=== PATIENT | female | born 1980 | race Hispanic/Latino ===

== ENCOUNTER 2017-09-27 13:41 | Emergency (ER) | payer OTHER ==
[2017-09-27 14:02] LABS: Absolute Lymphocytes (CBC) 3.5 K/uL (0.7-4.9); Absolute Monocytes 0.5 K/uL (0.1-1.3); Absolute Neutrophil 3.3 K/uL (1.8-8.0); Basophils % 0.7 % (0-1.3); Eosinophils % 5.7 % (0-4.4); Hematocrit 33.3 % (36.0-45.0); MCV 97.3 fL (80-100); MPV 7.1 fL (7.6-11.3); Monocytes % 6.3 % (3.3-12.3); RBC Red Blood Cell Count 3.42 M/uL (3.86-4.86)
[2017-09-27 14:10] LABS: BUN Blood Urea Nitrogen 15 mg/dL (6-20); Bicarbonate 27 mEq/L (21-31); Glomerular Filtration Rate > 90 mL/min (=/>90); Glucose Level 114 mg/dL (65-120); Potassium 3.7 mEq/L (3.6-5.0); Sodium Level 138 mEq/L (135-145)
[2017-09-27] MEDS ORDERED: NA CHLORIDE 0.9% 500 ML ONE (14:21)
--- NOTE | 2017-09-27 14:26 | RAD REPORT ---
EXAM DESCRIPTION: CT - Head Brain Wo Cont - 09/27/2017 2:02 pm CLINICAL HISTORY: Confusion COMPARISON: 2016 TECHNIQUE: Computed axial tomography of the head was obtained. IV contrast was not requested. All CT scans are performed using dose optimization technique as appropriate and may include automated exposure control or mA/KV adjustment according to patient size. FINDINGS: An intracranial bleed is not seen . The ventricles are normal in caliber. No extra-axial fluid collection is noted. Fluid within the sinuses/ mastoids is not seen. IMPRESSION: No acute intracranial abnormality is seen. If patient's symptoms persist MRI of the bra in would be recommended.
[2017-09-27 14:40] LABS: Urine Blood TRACE (NEG); Urine Glucose NEGATIVE (NEG); Urine Protein NEGATIVE (NEG)
[2017-09-27 14:53] LABS: Urine Bacteria >50 /HPF (<20); Urine Culture Reflex Order REFLEXED; Urine RBC <5 /HPF (NONE SEEN)
--- NOTE | 2017-09-27 15:03 | ER ---
Nurse's Notes [facility] Name: Sima Mcgee Age: 37 yrs Sex: Female : 1980 Arrival Date: 09/27/2017 Time: 13:39 Bed 2 Private MD: Diagnosis: Altered mental status, unspecified Presentation: 09/27 13:36 Presenting complaint: EMS states: Pt was at the dentist office getting dental work done sv and received lidocaine. Pt started becoming altered and admitted to smoking marijuana today. BS-107 HR-96 BP 124/78 Temp-97.6. Transition of care: patient was received from another setting of care (ambulatory specialty care practice), Dentist office. Onset of symptoms was September 27, 2017. Care prior to arrival: IV initiated. 20 GA, in the right antecubital area, Glucose check: 107. 13:36 Method Of Arrival: EMS: [facility] sv 13:36 Acuity: ERMIAS 3 sv Triage Assessment: 13:40 General: Appears in no apparent distress. comfortable, slender, well developed, sv Behavior is calm, cooperative, appropriate for age, drowsy. Pain: Denies pain. EENT: No signs and/or symptoms were reported regarding the EENT system. Neuro: Level of Consciousness is obeys commands, lethargic, Pt able to be woken up with verbal stimuli.. Oriented to person, place, time, Moves all extremities. Speech is normal. Cardiovascular: Patient's skin is warm and dry. Respiratory: Respiratory effort is even, unlabored, Respiratory pattern is regular, symmetrical. Derm: Skin is pink, warm \\T\\ dry. Musculoskeletal: Range of motion: intact in all extremities. Historical: - Allergies: 13:50 NKA; sv - Home Meds: 13:50 None [Active]; sv - PMHx: 13:50 Multiple Sclerosis; sv - PSHx: 13:50 None; sv - Immunization history:: Adult Immunizations up to date. - Social history:: Patient uses street drugs, marijuana. - Family history:: not pertinent. - Hospitalizations: : No recent hospitalization is reported. Screenin:51 Abuse screen: Denies threats or abuse. Denies injuries from another. Nutritional sv screening: No deficits noted. Tuberculosis screening: No symptoms or risk factors identified. Fall Risk None identified. Assessment: 13:53 Reassessment: See triage assessment. sv 14:42 Reassessment: Patient appears in no apparent distress at this time. No changes from sv previously documented assessment. Patient and/or family updated on plan of care and expected duration. Pain level reassessed. Patient is alert, oriented x 3, equal unlabored respirations, skin warm/dry/pink. Spouse at the bedside. 14:55 Reassessment: Patient appears in no apparent distress at this time. Patient and/or sv family updated on plan of care and expected duration. Pain level reassessed. Patient is alert, oriented x 3, equal unlabored respirations, skin warm/dry/pink. Pt stated "I need to leave honey. I can't go all weekend with no tooth and no phone. And my is special and won't go get my stuff." Informed Dr Rivas, pt must sign out AMA. Vital Signs: 13:49 BP 107 / 76; Pulse 88; Resp 16; Temp 97.8; Pulse Ox 100% ; Pain 0/10; sv 14:44 BP 132 / 88; Pulse 83; Resp 16; Pulse Ox 100% on R/A; sv ED Course: 13:39 Patient arrived in ED. sv 13:41 Anish Rivas MD is Attending Physician. rn 13:46 Donna Johnston RN is Primary Nurse. sv 13:49 Triage completed. sv 13:50 Arm band placed on left wrist. sv 13:51 Patient has correct armband on for positive identification. Bed in low position. Call sv light in reach. Side rails up X2. Pulse ox on. NIBP on. Door closed. Warm blanket given. Head of bed elevated. 13:[address] via stretcher. sv 14:35 Urine collected: clean catch specimen, cloudy. dh3 14:40 Urine --Ancillary (enter results) Sent. sv 14:40 Urine Dipstick--Ancillary (enter results) Sent. sv 14:41 Basic Metabolic Panel Sent. sv 14:41 CBC with Diff Sent. sv 14:41 CT Head Brain wo Cont Sent. sv 14:41 Urine Drug Screen Sent. sv 14:41 Urine Microscopic Only Sent. sv 15:04 No provider procedures requiring assistance completed. IV discontinued, intact, sv bleeding controlled, No redness/swelling at site. Pressure dressing applied. Administered Medications: 14:10 Drug: NS 0.9% 500 ml Route: IV; Rate: bolus; Site: right antecubital; sv 15:00 Follow up: Response: No adverse reaction; IV Status: Completed infusion; IV Intake: sv 500ml 14:55 Drug: Macrobid 100 mg Route: PO; sv 15:03 Follow up: Response: No adverse reaction; Medication administered at discharge. sv Point of Care Testing: Blood Glucose: 13:51 Blood Glucose: 108 mg/dL; sv Ranges: Outcome: 15:04 AMA AMA form signed sv 15:04 Condition: stable 15:04 Instructed on AMA 15:05 Patient left the ED. sv Addendum: 09/30/2017 09:18 Addendum: Culture Results: Positive urine culture. Bacteria is resistant to, has i w intermediate sensitivity, or is not tested against prescribed antibiotics. Report given to IGOR for further evaluation and then to car changer for follow up with patient. Phone call Attempt #1 pt did not answer, unable to leave voice mail. Signatures: Donna Johnston RN RN sv Williams, Irene, RN RN iw Nieto, Roman, MD MD rn Herrera, Deanna [facility]
--- NOTE | 2017-09-27 15:03 | EDPHYS ---
Physician Documentation [facility] Name: Sima Mcgee Age: 37 yrs Sex: Female : 1980 Arrival Date: 09/27/2017 Time: 13:39 Bed 2 Private MD: ED Physician Anish Rivas HPI: 09/27 14:45 This 37 yrs old Female presents to ER via EMS with complaints of Altered rn Mental Status. 14:45 The patient presents with confusion. Onset: The symptoms/episode began/occurred just rn prior to arrival. Possible causes: unknown. Current symptoms: In the emergency department the patient's symptoms have improved. The patient has experienced similar episodes in the past. Pt at dentist office, got some lidocaine and was getting a local procedure done, no other meds given, office report that she began to "act funny" toward end of procedure, admits to using normal marijuana prior to office visit to calm her nerves, also reports has MS, doesn't take medication and sometimes has this problem of generalized weakness and acting confused. . Historical: - Allergies: 13:50 NKA; sv - Home Meds: 13:50 None [Active]; sv - PMHx: 13:50 Multiple Sclerosis; sv - PSHx: 13:50 None; sv - Immunization history:: Adult Immunizations up to date. - Social history:: Patient uses street drugs, marijuana. - Family history:: not pertinent. - Hospitalizations: : No recent hospitalization is reported. ROS: 14:45 Constitutional: Negative for fever, chills, and weight loss, Eyes: Negative for injury, rn pain, redness, and discharge, Neck: Negative for injury, pain, and swelling, Cardiovascular: Negative for chest pain, palpitations, and edema, Respiratory: Negative for shortness of breath, cough, wheezing, and pleuritic chest pain, Abdomen/GI: Negative for abdominal pain, nausea, vomiting, diarrhea, and constipation, Back: Negative for injury and pain, MS/Extremity: Negative for injury and deformity, Skin: Negative for injury, rash, and discoloration, Neuro: Negative for headache, seizure. Exam: 14:45 Constitutional: This is a well developed, well nourished patient who is awake, alert, rn and in no acute distress. Head/Face: Normocephalic, atraumatic. Eyes: Pupils equal round and reactive to light, extra-ocular motions intact. Lids and lashes normal. Conjunctiva and sclera are non-icteric and not injected. Cornea within normal limits. Periorbital areas with no swelling, redness, or edema. Neck: Trachea midline, no thyromegaly or masses palpated, and no cervical lymphadenopathy. Supple, full range of motion without nuchal rigidity, or vertebral point tenderness. No Meningismus. Cardiovascular: Regular rate and rhythm with a normal S1 and S2. No gallops, murmurs, or rubs. Normal PMI, no JVD. No pulse deficits. Respiratory: Lungs have equal breath sounds bilaterally, clear to auscultation and percussion. No rales, rhonchi or wheezes noted. No increased work of breathing, no retractions or nasal flaring. Abdomen/GI: Soft, non-tender, with normal bowel sounds. No distension or tympany. No guarding or rebound. No evidence of tenderness throughout. MS/ Extremity: Pulses equal, no cyanosis. Neurovascular intact. Full, normal range of motion. Equal circumference. Neuro: Awake and alert, GCS 15, oriented to person, place, time, and situation. Cranial nerves II-XII grossly intact. Motor strength 5/5 in all extremities. Sensory grossly intact Vital Signs: 13:49 BP 107 / 76; Pulse 88; Resp 16; Temp 97.8; Pulse Ox 100% ; Pain 0/10; sv 14:44 BP 132 / 88; Pulse 83; Resp 16; Pulse Ox 100% on R/A; sv MDM: 13:41 Patient medically screened. rn 15:00 Differential Diagnosis: electrolyte abnormality, overdose, volume depletion, MS flare, rn UTI, dehydration. Data reviewed: vital signs, nurses notes, and as a result, I will. ED course: Pt states impatient, feels fine, is back to baseline and more lucid, normal exam, states dentist is closing, has purse and belongings there, wants to leave and doesn't want to wait of labs.. 09/27 13:49 Order name: CBC with Diff rn 09/27 13:49 Order name: Basic Metabolic Panel rn 09/27 13:49 Order name: Urine Drug Screen rn 09/27 13:49 Order name: Urine Microscopic Only rn 09/27 14:10 Order name: Basic Metabolic Panel; Complete Time: 14:32 EDMS 09/27 14:33 Order name: CBC with Automated Diff; Complete Time: 14:58 EDMS 09/27 13:46 Order name: CT Head Brain wo Cont rn 09/27 14:27 Order name: CT; Complete Time: 14:32 EDMS 09/27 14:35 Order name: Urine Dipstick--Ancillary (enter results) 09/27 14:35 Order name: Urine --Ancillary (enter results) bd 09/27 14:40 Order name: Urine --Ancillary; Complete Time: 14:58 EDMS 09/27 14:40 Order name: Urine Dipstick-Ancillary; Complete Time: 14:58 EDMS 09/27 14:54 Order name: Urine Microscopic Only; Complete Time: 14:58 EDHI 09/27 13:49 Order name: IV Start; Complete Time: 14:00 rn 09/27 13:49 Order name: Urine Test (obtain specimen); Complete Time: 14:35 rn 09/27 13:49 Order name: Urine Dipstick-Ancillary (obtain specimen); Complete Time: 14:35 rn 09/27 13:49 Order name: EKG - Nurse/Tech; Complete Time: 13:59 rn 09/27 13:49 Order name: EKG; Complete Time: 13:50 rn 09/27 13:49 Order name: Glucose Level; Complete Time: 13:59 rn Administered Medications: 14:10 Drug: NS 0.9% 500 ml Route: IV; Rate: bolus; Site: right antecubital; sv 15:00 Follow up: Response: No adverse reaction; IV Status: Completed infusion; IV Intake: sv 500ml 14:55 Drug: Macrobid 100 mg Route: PO; sv 15:03 Follow up: Response: No adverse reaction; Medication administered at discharge. sv Point of Care Testing: Blood Glucose: 13:51 Blood Glucose: 108 mg/dL; sv Ranges: Critical Glucose Levels:Adult <50 mg/dl or >400 mg/dl <40 mg/dl or >180 mg/dl Disposition: 09/27/17 15:03 Patient has left against medical advice. Impression: Altered mental status, unspecified. - Patients states they are going to Home. - Condition is Stable. - Discharge Instructions: Urinary Tract Infection. - Prescriptions for Macrobid 100 mg Oral Capsule - take 1 capsule by ORAL route every 12 hours for 10 days; 20 capsule. Follow up: Private Physician; When: As needed; Reason: Recheck today's complaints, Re-evaluation by your physician. - Problem is new. - Symptoms have improved. Signatures: Dispatcher [employer] Donna Kwok, GREGORIO RN Anish Casiano MD MD rn
[2017-09-27] MEDS ORDERED: NITROFURAN MACRO 100 MG CAP PO ONE (15:11)
[2017-09-27 15:52] LABS: Barbiturates NEGATIVE; Benzodiazepines NEGATIVE; Cocaine NEGATIVE; METHAMPHETAM NEGATIVE; Opiates POSITIVE; Phencyclidine NEGATIVE; THC Cannibis POSITIVE
--- NOTE | 2017-09-28 07:23 | EKG ---
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
== END 2017-09-27 15:05 | disposition left against medical advice (07) ==
LOC: ER 13:41
DX: R41.82 Altered mental status, unspecified (principal); G35 Multiple sclerosis
CPT/HCPCS: 36415; 70450; 80048; 80307; 81003; 81015; 81025; 82962; 85025; 87077; 87086; 87088; 87186; 93005; 96360; 99284

== ENCOUNTER 2017-12-08 11:53 | Emergency (ER) | payer OTHER ==
[2017-12-08] MEDS ORDERED: NA CHLORIDE 0.9% 1,000 ML ONE (12:55)
[2017-12-08] MEDS ORDERED: METHYLPREDNISOLONE 125 MG INJ ONE (12:55)
[2017-12-08 13:02] LABS: Absolute Lymphocytes (CBC) 3.3 K/uL (0.7-4.9); Absolute Monocytes 0.5 K/uL (0.1-1.3); Absolute Neutrophil 2.5 K/uL (1.8-8.0); Basophils % 0.8 % (0-1.3); Eosinophils % 8.3 % (0-4.4); Hematocrit 30.1 % (36.0-45.0); Lymphocytes % 47.8 % (15.3-44.8); MCH 32.5 pg (27.0-35.0); Monocytes % 6.8 % (3.3-12.3); RBC Red Blood Cell Count 3.04 M/uL (3.86-4.86)
[2017-12-08 13:13] LABS: Bicarbonate 27 mEq/L (21-31); Glucose Level 99 mg/dL (65-120); Lipase 21 U/L (22-51); Sodium Level 137 mEq/L (135-145)
[2017-12-08 13:19] LABS: ALT/SGPT 10 IU/L (10-60); AST/SGOT 15 IU/L (10-42); Albumin 3.6 g/dL (3.2-5.5); Alkaline Phosphatase 36 IU/L (42-121); BUN Blood Urea Nitrogen 13 mg/dL (6-20); Bilirubin Direct 0.1 mg/dL (0-0.2); Bilirubin Total 0.3 mg/dL (0.3-1.2); Protein, Total 6.3 g/dL (6.0-8.3)
[2017-12-08 13:54] LABS: Urine Blood NEGATIVE (NEG); Urine Glucose NEGATIVE (NEG); Urine Protein NEGATIVE (NEG); Urine pH 5.5 (5.0-7.0)
[2017-12-08 13:56] LABS: Urine Bacteria >50 /HPF (<20); Urine Culture Reflex Order NOT NEEDED; Urine Mucus 1+ /HPF (NONE SEEN); Urine RBC <5 /HPF (NONE SEEN)
[2017-12-08 14:01] LABS: Barbiturates NEGATIVE; Benzodiazepines NEGATIVE; Cocaine NEGATIVE; METHAMPHETAM NEGATIVE (NEGATIVE); Opiates POSITIVE; Phencyclidine NEGATIVE; THC Cannibis POSITIVE
[2017-12-08] MEDS ORDERED: CEFTRIAXONE/SWI 1gm 1 GM/10 ML SYR ONE (14:51)
--- NOTE | 2017-12-08 15:09 | EDPHYS ---
Physician Documentation [facility] Name: Sima Mcgee Age: 37 yrs Sex: Female : 1980 Arrival Date: 12/08/2017 Time: 11:57 Bed 6 Private MD: ED Physician Stan Garcia HPI: 12/08 13:51 This 37 yrs old Female presents to ER via EMS with complaints of generalized snw pain, MS flair up. 13:51 Pt found unresponsive in vehicle post taking 2 Gregory and smoking marijuana for MS pain. snw Onset: The symptoms/episode began/occurred suddenly, just prior to arrival. Severity of symptoms: At their worst the symptoms were moderate. It is unknown whether or not the patient has had similar symptoms in the past. It is unknown whether or not the patient has recently seen a physician. When I assessed pt she was drowsy but arousable, answers questions appropriately. Historical: - Allergies: 12:16 NKA; ss - Home Meds: 12:16 Gregory 10-325 mg Oral tab [Active]; "unknown MS medication" [Active]; ss - PMHx: 12:16 Multiple Sclerosis; ss - PSHx: 12:43 tummy tuck; ss - Immunization history:: Adult Immunizations unknown. - Social history:: Smoking status: unknown. - Ebola Screening: : Patient denies exposure to infectious person Patient denies travel to an Ebola-affected area in the 21 days before illness onset. ROS: 14:58 Eyes: Negative for injury, pain, redness, and discharge, ENT: Negative for injury, snw pain, and discharge, Neck: Negative for injury, pain, and swelling, Cardiovascular: Negative for chest pain, palpitations, and edema, Respiratory: Negative for shortness of breath, cough, wheezing, and pleuritic chest pain, Abdomen/GI: Negative for abdominal pain, nausea, vomiting, diarrhea, and constipation, Back: Negative for injury and pain, : Negative for injury, bleeding, discharge, and swelling, MS/Extremity: Negative for injury and deformity, Skin: Negative for injury, rash, and discoloration. 14:58 Constitutional: Positive for body aches, malaise, poor PO intake. 14:58 Neuro: Positive for near syncope, weakness, pain all over. Exam: 14:55 Head/Face: Normocephalic, atraumatic. Eyes: Pupils equal round and reactive to light, snw extra-ocular motions intact. Lids and lashes normal. Conjunctiva and sclera are non-icteric and not injected. Cornea within normal limits. Periorbital areas with no swelling, redness, or edema. ENT: Nares patent. No nasal discharge, no septal abnormalities noted. Tympanic membranes are normal and external auditory canals are clear. Oropharynx with no redness, swelling, or masses, exudates, or evidence of obstruction, uvula midline. Mucous membranes moist. Neck: Trachea midline, no thyromegaly or masses palpated, and no cervical lymphadenopathy. Supple, full range of motion without nuchal rigidity, or vertebral point tenderness. No Meningismus. Chest/axilla: Normal chest wall appearance and motion. Nontender with no deformity. No lesions are appreciated. Cardiovascular: Regular rate and rhythm with a normal S1 and S2. No gallops, murmurs, or rubs. Normal PMI, no JVD. No pulse deficits. Respiratory: Lungs have equal breath sounds bilaterally, clear to auscultation and percussion. No rales, rhonchi or wheezes noted. No increased work of breathing, no retractions or nasal flaring. Abdomen/GI: Soft, non-tender, with normal bowel sounds. No distension or tympany. No guarding or rebound. No evidence of tenderness throughout. Back: No spinal tenderness. No costovertebral tenderness. Full range of motion. Skin: Warm, dry with normal turgor. Normal color with no rashes, no lesions, and no evidence of cellulitis. MS/ Extremity: Pulses equal, no cyanosis. Neurovascular intact. Full, normal range of motion. Neuro: Awake and alert, GCS 15, oriented to person, place, time, and situation. Cranial nerves II-XII grossly intact. Motor strength 5/5 in all extremities. Sensory grossly intact. Cerebellar exam normal. Normal gait. 14:55 Constitutional: The patient appears awake, anxious, drowsy but Oriented x 3 14:55 Psych: Behavior/mood is anxious, Affect is calm, Oriented to person, place, time, Recent memory is impaired. Vital Signs: 12:00 BP 95 / 74; Pulse 93; Resp 14; Temp 99.0(O); Pulse Ox 100% on R/A; Weight 45.36 kg; ss Height 5 ft. 0 in. (152.40 cm); Pain 0/10; 13:00 BP 100 / 69; Pulse 70; Resp 14; Pulse Ox 100% on R/A; dh3 14:00 BP 109 / 69; Pulse 83; Resp 15; Pulse Ox 100% on R/A; dh3 15:29 BP 107 / 71; Pulse 81; Resp 18; Temp 98.4(TE); Pulse Ox 99% on R/A; ph 12:00 Body Mass Index 19.53 (45.36 kg, 152.40 cm) ss MDM: 12:22 Patient medically screened. snw 14:58 Data reviewed: vital signs, nurses notes. Data interpreted: Pulse oximetry: on room air snw is 100 %. Interpretation: normal. Counseling: I had a detailed discussion with the patient and/or guardian regarding: the historical points, exam findings, and any diagnostic results supporting the discharge/admit diagnosis, lab results, the need for outpatient follow up, for definitive care, to return to the emergency department if symptoms worsen or persist or if there are any questions or concerns that arise at home. Special discussion: Based on the history and exam findings, there is no indication for further emergent testing or inpatient evaluation. I discussed with the patient/guardian the need to see the primary care provider for further evaluation of the symptoms. 15:02 ED course: on arrival BP a little low, will give fluids and steroids. w 12/08 12:22 Order name: Basic Metabolic Panel; Complete Time: 13:27 snw 12/08 12:22 Order name: CBC with Diff; Complete Time: 13:17 snw 12/08 12:22 Order name: Hepatic Function; Complete Time: 13:27 snw 12/08 12:22 Order name: Lipase; Complete Time: 13:27 snw 12/08 12:22 Order name: Urine Microscopic Only; Complete Time: 14:02 snw 12/08 12:22 Order name: Tylenol Level; Complete Time: 13:27 snw 12/08 12:22 Order name: Urine Test (obtain specimen); Complete Time: 13:47 snw 12/08 12:22 Order name: UDS; Complete Time: 14:05 snw 12/08 13:47 Order name: Urine Culture snw 06/03 13:51 Order name: Urine Dipstick--Ancillary (enter results); Complete Time: 13:55 em1 12/08 13:51 Order name: Urine --Ancillary (enter results); Complete Time: 13:55 em1 12/08 12:22 Order name: IV Saline Lock; Complete Time: 12:56 snw 12/08 12:22 Order name: Labs collected and sent; Complete Time: 12:56 snw 12/08 12:22 Order name: Urine Dipstick-Ancillary (obtain specimen); Complete Time: 13:47 snw Administered Medications: 13:00 Drug: NS 0.9% 1000 ml Route: IV; Rate: 1 bolus; Site: right antecubital; hb 15:27 Follow up: Response: No adverse reaction; IV Status: Completed infusion ph 13:00 Drug: SOLU-Medrol 125 mg Route: IVP; Site: right antecubital; hb 15:27 Follow up: Response: No adverse reaction ph 15:04 Drug: Rocephin 1 grams Route: IV; Rate: calculated rate; Site: right antecubital; ph 15:27 Follow up: Response: No adverse reaction; IV Status: Completed infusion ph Disposition: 12/08/17 15:08 Discharged to Home. Impression: Urinary tract infection, site not specified, Unintentional overdose of pain medications. - Condition is Stable. - Discharge Instructions: Muscle Pain, Adult, Overdose, Accidental, Urinary Tract Infection. - Prescriptions for Augmentin 875- 125 mg Oral Tablet - take 1 tablet by ORAL route every 12 hours for 10 days; 20 tablet. Medrol (Levon) 4 mg Oral Tablets, Dose Pack - take 1 tablet by ORAL route as directed - follow package instructions; 1 packet. - Medication Reconciliation Form, Thank You Letter, Antibiotic Education, Prescription Opioid Use form. - Follow up: Private Physician; When: Tomorrow; Reason: Recheck today's complaints, Continuance of care, Re-evaluation by your physician. Follow up: Emergency Department; When: As needed; Reason: Worsening of condition. Addendum: 12/12/2017 11:34 Co-signature as Attending Physician, Stan Garcia MD. g s Signatures: Dispatcher [facility] EDMiley Reynoso, [employer] SUPERVISOR-[employer]aw Meredith Herrera RN RN ss Juanita Mccoy RN RN ph Millie Gimenez RN RN Stan Garcia MD MD gs Corrections: (The following items were deleted from the chart) 12/08 12:43 12:16 PSHx: None; ss ss 15:29 15:08 12/08/2017 15:08 Discharged to Home. Impression: Urinary tract infection, site ph not specified; Unintentional overdose of pain medications. Condition is Stable. Forms are Medication Reconciliation Form, Thank You Letter, Antibiotic Education, Prescription Opioid Use. Follow up: Private Physician; When: Tomorrow; Reason: Recheck today's complaints, Continuance of care, Re-evaluation by your physician. Follow up: Emergency Department; When: As needed; Reason: Worsening of condition. snw
--- NOTE | 2017-12-08 15:09 | ER ---
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 Pt ss is awake, but drowsy on arrival to ER. Pt reports she smoked marijuana and took two 10 mg Hal[place]orpe that she takes for MS. Pt states, "The MS makes me drowsy." Denies suicidal ideations. Pt states, "I'm trying to live!". Transition of care: patient was not received from another setting of care. Onset of symptoms was December 08, 2017. Risk Assessment: Do you want to hurt yourself or someone else? Patient reports no desire to harm self or others. Initial Sepsis Screen: Does the patient meet any 2 criteria? No. Patient's initial sepsis screen is negative. Does the patient have a suspected source of infection? No. Patient's initial sepsis screen is negative. Care prior to arrival: None. 12:02 Method Of Arrival: EMS: [facility] ss 12:02 Acuity: ERMIAS 3 ss Historical: - Allergies: 12:16 NKA; ss - Home Meds: 12:16 Halethorpe 10-325 mg Oral tab [Active]; "unknown MS medication" [Active]; ss - PMHx: 12:16 Multiple Sclerosis; ss - PSHx: 12:43 tummy tuck; ss - Immunization history:: Adult Immunizations unknown. - Social history:: Smoking status: unknown. - Ebola Screening: : Patient denies exposure to infectious person Patient denies travel to an Ebola-affected area in the 21 days before illness onset. Screenin:41 Abuse screen: Denies threats or abuse. Denies injuries from another. Nutritional ss screening: No deficits noted. Tuberculosis screening: Never had TB. Fall Risk No fall in past 12 months (0 pts). Secondary diagnosis (15 points) impaired/ drowsy. IV access (20 points). Ambulatory Aid- None/Bed Rest/Nurse Assist (0 pts). Gait- Normal/Bed Rest/Wheelchair (0 pts) Mental Status- Oriented to own ability (0 pts). Assessment: 12:15 General: Appears in no apparent distress. comfortable, slender, Behavior is calm, ph cooperative, drowsy, Denies fever, feeling ill. Pain: Complains of pain in " all over" reports hx of MS. 12:15 Neuro: Level of Consciousness is awake, obeys commands, Oriented to person, place, ph time, situation, Speech is normal. Cardiovascular: Capillary refill < 3 seconds Patient's skin is warm and dry. Respiratory: Airway is patent Respiratory effort is even, unlabored, Respiratory pattern is regular, symmetrical. GI: No signs and/or symptoms were reported involving the gastrointestinal system. Patient currently denies diarrhea, nausea, vomiting. : No signs and/or symptoms were reported regarding the genitourinary system. Derm: Skin is intact, is healthy with good turgor, Skin is pink, warm \\T\\ dry. Musculoskeletal: Circulation, motion, and sensation intact. Range of motion: intact in all extremities. 12:40 Reassessment: attempted to call patient's , Pancho # [phone] as requested ss by patient. No answer. 13:45 Reassessment: Patient appears in no apparent distress at this time. No changes from hb previously documented assessment. Patient and/or family updated on plan of care and expected duration. Pain level reassessed. 15:12 Reassessment: Patient appears in no apparent distress at this time. Patient and/or ph family updated on plan of care and expected duration. Pain level reassessed. Patient is alert, oriented x 3, equal unlabored respirations, skin warm/dry/pink. Pt appears more alert, responding appropriately, awaiting discharge, spouse at bedside. Vital Signs: 12:00 BP 95 / 74; Pulse 93; Resp 14; Temp 99.0(O); Pulse Ox 100% on R/A; Weight 45.36 kg; ss Height 5 ft. 0 in. (152.40 cm); Pain 0/10; 13:00 BP 100 / 69; Pulse 70; Resp 14; Pulse Ox 100% on R/A; dh3 14:00 BP 109 / 69; Pulse 83; Resp 15; Pulse Ox 100% on R/A; dh3 15:29 BP 107 / 71; Pulse 81; Resp 18; Temp 98.4(TE); Pulse Ox 99% on R/A; ph 12:00 Body Mass Index 19.53 (45.36 kg, 152.40 cm) ED Course: 11:57 Patient arrived in ED. em1 12:00 Arm band placed on right wrist. ss 12:09 Triage completed. ss 12:20 Miley Recio FNP-C is PHCP. snw 12:20 Stan Garcia MD is Attending Physician. snw 12:41 Patient has correct armband on for positive identification. Bed in low position. Call light in reach. 12:50 Maintain EMS IV. Dressing intact. Good blood return noted. Site clean \\T\\ dry. Gauge \\T\\ ph site: 20 RAC. 12:55 Initial lab(s) drawn, by me, sent to lab. dh3 13:47 Urine collected: clean catch specimen, cloudy. dh3 14:56 Juanita Mccoy, RN is Primary Nurse. ph 15:12 No provider procedures requiring assistance completed. ph 15:28 IV discontinued, intact, bleeding controlled, No redness/swelling at site. Pressure ph dressing applied. Administered Medications: 13:00 Drug: NS 0.9% 1000 ml Route: IV; Rate: 1 bolus; Site: right antecubital; hb 15:27 Follow up: Response: No adverse reaction; IV Status: Completed infusion ph 13:00 Drug: SOLU-Medrol 125 mg Route: IVP; Site: right antecubital; hb 15:27 Follow up: Response: No adverse reaction ph 15:04 Drug: Rocephin 1 grams Route: IV; Rate: calculated rate; Site: right antecubital; ph 15:27 Follow up: Response: No adverse reaction; IV Status: Completed infusion ph Outcome: 15:08 Discharge ordered by . snw 15:28 Discharged to home ambulatory, with significant other. ph 15:28 Condition: good 15:28 Discharge instructions given to patient, Instructed on discharge instructions, follow up and referral plans. medication usage, Demonstrated understanding of instructions, follow-up care, medications, Prescriptions given X 2. 15:29 Patient left the ED. ph Addendum: 12/11/2017 13:24 Addendum: Culture Results: Positive urine culture. No further action required. Bacteria s s sensitive to prescribed antibiotic. Signatures: Miley Recio FNP-C FNP-Cs[facility] [place] em1 Meredith Herrera RN RN Juanita Mccoy RN RN Millie Gimenez RN RN Kathie Lewis [facility] Corrections: (The following items were deleted from the chart) 12/08 12:43 12:16 PSHx: None; ss ss 14:19 14:18 BP 109 / 69; Pulse 72bpm; Resp 15bpm; Pulse Ox 100% RA; [facility] 15:11 12:15 Pain: Complains of pain in " all over" reports hx of MS ph ph
== END 2017-12-08 15:29 | disposition home or self-care (01) ==
LOC: ER 11:53
DX: N39.0 Urinary tract infection, site not specified (principal); T50.991A Poisoning by other drugs, medicaments and biological substances, accidental (unintentional), initial encounter
CPT/HCPCS: 36415; 80048; 80076; 80307; 80329; 81003; 81015; 81025; 83690; 85025; 87077; 87086; 87088; 87186; 96361; 96365; 96375; 99284; J0696; J2930; J7030

== ENCOUNTER 2018-11-02 01:23 | Emergency (ER) | payer BC, OTHER ==
--- OUTSIDE RECORDS SUMMARY | 2018-11-02 01:25 | XMS REPORT ---
:1980 [facility] [address] [place] [id number] Care Team Providers Name Role Phone Unavailable Unavailable Unavailable Problems This patient has no known problems. Allergies, Adverse Reactions, Alerts This patient has no known allergies or adverse reactions. Medications This patient has no known medications.
[2018-11-02] MEDS ORDERED: IPRATROPIUM BROM 0.5MG/2.5ML ONE (03:03)
[2018-11-02] MEDS ORDERED: METHYLPREDNISOLONE 125 MG INJ ONE (03:03)
[2018-11-02] MEDS ORDERED: ALBUTEROL 2.5 MG/3 ML NEB SOL ONE (03:03)
[2018-11-02] MEDS ORDERED: NA CHLORIDE 0.9% 1,000 ML ONE ×3 (03:04→07:40)
[2018-11-02] MEDS ORDERED: ONDANSETRON 4 MG/2 ML VIAL ONE (03:04)
[2018-11-02 03:08] LABS: Absolute Lymphocytes (CBC) 1.4 K/uL (0.7-4.9); Absolute Monocytes 0.4 K/uL (0.1-1.3); Absolute Neutrophil 4.1 K/uL (1.8-8.0); Basophils % 0.4 % (0-1.3); Eosinophils % 2.3 % (0-4.4); Hematocrit 34.3 % (36.0-45.0); Lymphocytes % 22.6 % (15.3-44.8); MPV 6.5 fL (7.6-11.3); Monocytes % 6.4 % (3.3-12.3); RBC Red Blood Cell Count 3.73 M/uL (3.86-4.86)
[2018-11-02 03:34] LABS: Albumin 4.1 g/dL (3.4-5.0); Alkaline Phosphatase 121 U/L (45-117); BUN Blood Urea Nitrogen 5 mg/dL (7-18); Bicarbonate 20 mmol/L (21-32); Bilirubin Total 1.7 mg/dL (0.2-1.0); Glucose Level 90 mg/dL (74-106); Protein, Total 7.9 g/dL (6.4-8.2); Sodium Level 143 mmol/L (136-145)
[2018-11-02 03:35] LABS: ALT/SGPT 538 U/L (12-78); AST/SGOT 721 U/L (15-37)
[2018-11-02 04:12] LABS: Lipase 91 U/L (73-393)
[2018-11-02 05:03] LABS: Blood Morphology Comment NOTED (NOT SEEN); Platelet Estimate INCR; Urine White Blood Cell Casts OK
[2018-11-02 05:04] LABS: Anisocytosis SLIGHT
[2018-11-02 06:14] LABS: Urine Amorphous Sediment 1+ /HPF (NONE SEEN); Urine Bacteria >50 /HPF (<20); Urine Culture Reflex Order REFLEXED; Urine Mucus 2+ /HPF (NONE SEEN); Urine RBC <5 /HPF (NONE SEEN)
[2018-11-02 06:14] LABS: Urine Blood NEGATIVE (NEG); Urine Glucose NEGATIVE (NEG); Urine Protein 1+ (NEG)
--- NOTE | 2018-11-02 07:30 | RAD REPORT ---
EXAM DESCRIPTION: CTAbdomen Pelvis W Contrast - 11/02/2018 7:25 am CLINICAL HISTORY: Abdominal pain. ABD PAIN COMPARISON: No comparisons TECHNIQUE: Biphasic CT imaging of the abdomen and pelvis was performed with 100 ml non-ionic IV cont rast. All CT scans are performed using dose optimization technique as appropriate and may include automated exposure control or mA/KV adjustment according to patient size. FINDINGS: The lung bases are clear. The liver, spleen, pancreas, adrenal glands and kidneys are within normal limits. No bowel obstruction, free air, free fluid or abscess. The appendix is normal however contains an ap pendicolith. Moderate stool is present in the colon. No evidence of significant lymphadenopathy. No suspicious bony findings. IMPRESSION: No acute intra-abdominal or pelvic finding.
[2018-11-02] MEDS ORDERED: KETOROLAC 30 MG/ML INJ ONE (07:40)
[2018-11-02] MEDS ORDERED: FAMOTIDINE 20 MG/2 ML VIAL IV ONE (07:40)
[2018-11-02] MEDS ORDERED: CEFTRIAXONE/SWI 1gm 1 GM/10 ML SYR ONE (07:40)
--- NOTE | 2018-11-02 07:47 | EDPHYS ---
Physician Documentation [facility] Name: Sima Mcgee Age: 38 yrs Sex: Female : 1980 Arrival Date: 11/02/2018 Time: : Bed 13 Private MD: Madi Chiu T ED Physician Kevin Kenyon HPI: 11/02 04:04 This 38 yrs old Female presents to ER via Ambulatory with complaints of pm1 Breathing Difficulty. 04:04 The patient has shortness of breath at rest. Onset: The symptoms/episode began/occurred pm1 Shortness of breath has been ongoing for multiple year. Saw Dr. Chiu recently for cough and congestion and was placed on antibiotics. Patient with vomiting and epigastric abdominal pain for about 1 week. Reports decreased PO intake. Duration: The symptoms are continuous, and are steadily getting worse. The patient's shortness of breath is aggravated by nothing, is alleviated by nothing. Associated signs and symptoms: Pertinent positives: vomiting, sore throat, Pertinent negatives: chest pain, fever. Severity of symptoms: in the emergency department the symptoms are worse. The patient has been recently seen by a physician: the patient's primary care provider, Dr. Chiu with similar presenting complaints, was given a prescription for antibiotics. Historical: - Allergies: 01:43 NKA; mg2 - PMHx: 01:43 Multiple Sclerosis; mg2 - PSHx: 01:43 burn (graft); mg2 - Immunization history:: Flu vaccine is not up to date. - Social history:: Smoking status: Patient/guardian denies using tobacco, Patient/guardian denies using alcohol, street drugs, IV drugs. - Ebola Screening: : No symptoms or risks identified at this time. ROS: 04:04 Eyes: Negative for injury, pain, redness, and discharge. pm1 04:04 Neck: Negative for injury, pain, and swelling, Cardiovascular: Negative for chest pain, palpitations, and edema. 04:04 Back: Negative for injury and pain, : Negative for injury, bleeding, discharge, and swelling, MS/Extremity: Negative for injury and deformity, Skin: Negative for injury, rash, and discoloration, Neuro: Negative for headache, weakness, numbness, tingling, and seizure. 04:04 Constitutional: Positive for poor PO intake, Negative for body aches, chills, fever. 04:04 ENT: Positive for sore throat, Negative for drainage from ear(s), ear pain, difficulty swallowing, difficulty handling secretions, hoarseness. 04:04 Respiratory: Positive for cough, with yellow sputum, shortness of breath. 04:04 Abdomen/GI: Positive for abdominal pain, nausea and vomiting, Negative for diarrhea, constipation. Exam: 04:04 Constitutional: This is a well developed, well nourished patient who is awake, alert, pm1 and in no acute distress. Head/Face: Normocephalic, atraumatic. Eyes: Pupils equal round and reactive to light, extra-ocular motions intact. Lids and lashes normal. Conjunctiva and sclera are non-icteric and not injected. Cornea within normal limits. Periorbital areas with no swelling, redness, or edema. ENT: Nares patent. No nasal discharge, no septal abnormalities noted. Tympanic membranes are normal and external auditory canals are clear. Oropharynx with no redness, swelling, or masses, exudates, or evidence of obstruction, uvula midline. Mucous membranes moist. Neck: Trachea midline, no thyromegaly or masses palpated, and no cervical lymphadenopathy. Supple, full range of motion without nuchal rigidity, or vertebral point tenderness. No Meningismus. Chest/axilla: Normal chest wall appearance and motion. Nontender with no deformity. No lesions are appreciated. Cardiovascular: Regular rate and rhythm with a normal S1 and S2. No gallops, murmurs, or rubs. Normal PMI, no JVD. No pulse deficits. 04:04 Abdomen/GI: Soft, non-tender, with normal bowel sounds. No distension or tympany. No guarding or rebound. No evidence of tenderness throughout. Back: No spinal tenderness. No costovertebral tenderness. Full range of motion. Skin: Warm, dry with normal turgor. Normal color with no rashes, no lesions, and no evidence of cellulitis. MS/ Extremity: Pulses equal, no cyanosis. Neurovascular intact. Full, normal range of motion. 04:04 Respiratory: the patient does not display signs of respiratory distress, Respirations: normal, Breath sounds: bronchial sounds, that are mild, are heard diffusely. 04:04 Neuro: Orientation: is normal, Motor: is normal, moves all fours. 07:47 Musculoskeletal/extremity: DVT Exam: No signs of deep vein thrombosis. no pain, no piotr swelling, no tenderness, negative Homans' sign noted on exam, no appreciated bluish discoloration, no erythema, no increased warmth. Vital Signs: 01:41 BP 148 / 98; Pulse 107; Resp 18; Temp 99.3(O); Pulse Ox 97% on R/A; Weight 49.9 kg; mg2 Height 5 ft. 0 in. (152.40 cm); Pain 7/10; 02:30 BP 129 / 80; Pulse 90; Resp 18; Pulse Ox 99% on R/A; aa1 03:30 BP 114 / 62; Pulse 116; Resp 18; Pulse Ox 100% ; aa1 04:37 BP 112 / 57; Pulse 120; Resp 16; Pulse Ox 99% on R/A; aa1 05:30 BP 115 / 70; Pulse 110; Resp 18; Pulse Ox 99% on R/A; rr5 06:36 BP 118 / 69; Pulse 99; Resp 18; Pulse Ox 97% on R/A; oe 07:30 BP 128 / 84; Pulse 96; Resp 18; Pulse Ox 99% on R/A; Pain 8/10; em 01:41 Body Mass Index 21.48 (49.90 kg, 152.40 cm) mg2 MDM: 01:43 Patient medically screened. [facility] 04:09 Data reviewed: vital signs. Data interpreted: Pulse oximetry: on room air is 97 %. pm1 Interpretation: normal. 11/02 02:16 Order name: CBC with Diff; Complete Time: 05:11 pm1 11/02 02:16 Order name: CMP; Complete Time: 04:16 pm1 11/02 03:10 Order name: CBC Smear Scan; Complete Time: 05:11 EDMS 11/02 04:03 Order name: [place] Screen Profile pm1 11/02 04:04 Order name: [place] Screen; Complete Time: 06:45 EDMS 11/02 02:16 Order name: Chest Pa And Lat (2 Views) XRAY pm11/02 03:59 Order name: CT Abd/Pelvis - W/Contrast: IV contrast only; Complete Time: 07:37 pm1 11/02 04:05 Order name: Lipase; Complete Time: 04:16 EDMS 11/02 04:18 Order name: Urine Microscopic Only; Complete Time: 06:45 pm1 11/02 04:47 Order name: Urine Dipstick--Ancillary (enter results); Complete Time: 06:45 ar5 11/02 04:47 Order name: Urine --Ancillary (enter results); Complete Time: 06:45 ar5 11/02 06:16 Order name: Urine Culture EDMS 11/02 07:22 Order name: Hepatitis Panel piotr 11/02 02:16 Order name: IV Saline Lock; Complete Time: 03:03 pm1 11/02 04:18 Order name: Urine Dipstick-Ancillary (obtain specimen); Complete Time: 04:36 pm1 11/02 04:18 Order name: Urine Test (obtain specimen); Complete Time: 04:36 pm1 11/02 06:46 Order name: US Abdomen Limited piotr Administered Medications: 02:55 Drug: NS 0.9% 1000 ml Route: IV; Rate: 1000 ml; Site: right antecubital; aa1 03:56 Follow up: IV Status: Completed infusion; IV Intake: 1000ml aa1 02:55 Drug: Albuterol - atroVENT (3:1) (2.5 mg - 0.5 mg) 3 ml Route: Nebulizer; aa1 09:05 Follow up: Response: No adverse reaction em 02:55 Drug: SOLU-Medrol 125 mg Route: IVP; Site: right antecubital; aa1 09:05 Follow up: Response: No adverse reaction em 02:57 Drug: Zofran 4 mg Route: IVP; Site: right antecubital; aa1 09:05 Follow up: Response: No adverse reaction em 03:57 Drug: NS 0.9% 1000 ml Route: IV; Rate: 1000 ml; Site: right antecubital; aa1 09:06 Follow up: IV Status: Completed infusion; IV Intake: 1000ml em 07:42 Drug: NS 0.9% 1000 ml Route: IV; Rate: 125 ml/hr; Site: right antecubital; em 09:05 Follow up: IV Status: Completed infusion; IV Intake: 1000ml em 07:49 Drug: Pepcid 20 mg Route: IVP; Site: right antecubital; iw 09:04 Follow up: Response: No adverse reaction; Pain is decreased em 07:50 Drug: Rocephin - (cefTRIAXone) 1 grams Route: IVPB; Infused Over: 30 mins; Site: right iw antecubital; 09:05 Follow up: Response: No adverse reaction; IV Status: Completed infusion; IV Intake: 10mlem 07:50 Drug: TORadol 30 mg Route: IVP; Site: right antecubital; 09:05 Follow up: Response: No adverse reaction; Pain is decreased em Disposition: 05:12 Co-signature as Attending Physician, Kvein Kenyon MD I agree with the assessment and piotr plan of care. Disposition: 11/02/18 07:46 Discharged to Home. Impression: Dyspnea, Vomiting, Volume depletion. - Condition is Stable. - Discharge Instructions: Diet and Hepatitis, Nausea and Vomiting, Adult, Nausea and Vomiting, Adult, [id number]. - Prescriptions for Pepcid 20 mg Oral Tablet - take 1 tablet by ORAL route every 12 hours for 10 days; 20 tablet. Zofran 4 mg Oral Tablet - take 1 tablet by ORAL route every 12 hours As needed; 20 tablet. - Medication Reconciliation Form, Thank You Letter, Antibiotic Education, Prescription Opioid Use form. - Follow up: Madi Chiu MD; When: 1 - 2 days; Reason: Recheck today's complaints, Continuance of care, Re-evaluation by your physician. Follow up: Jose D Beckman MD; When: 2 - 3 days; Reason: Recheck today's complaints, Continuance of care, Re-evaluation by your physician. - Problem is new. - Symptoms have improved. Signatures: Dispatcher [employer] EDMI Ginger Dominguez RN RN aa1 Kevin Kenyon MD MD cha Munoz, Edgar, VERTICAL BORER VERTICAL BORER em Eliane Martinez RN RN iw Sandoval Carlson, [employer] pm1 Huseyin Salter RN RN mg2 Corrections: (The following items were deleted from the chart) 04:05 03:59 LIPASE+C.LAB.BRZ ordered. [facility] 09:06 07:46 11/02/2018 07:46 Discharged to Home. Impression: Dyspnea; Vomiting; Volume em depletion. Condition is Stable. Forms are Medication Reconciliation Form, Thank You Letter, Antibiotic Education, Prescription Opioid Use. Follow up: Madi Chiu; When: 1 - 2 days; Reason: Recheck today's complaints, Continuance of care, Re-evaluation by your physician. Follow up: Jose D Beckman; When: 2 - 3 days; Reason: Recheck today's complaints, Continuance of care, Re-evaluation by your physician. Problem is new. Symptoms have improved. piotr
--- NOTE | 2018-11-02 07:47 | ER ---
Nurse's Notes [facility] Name: Sima Mcgee Age: 38 yrs Sex: Female : 1980 Arrival Date: 11/02/2018 Time: :28 Bed 13 Private MD: Madi Chiu T Diagnosis: Dyspnea;Vomiting;Volume depletion Presentation: 11/02 01:40 Presenting complaint: Patient states: i have shortness of breath and cough for 3 weeks, mg2 back pain for a year. i noticed a lump in my sternum last month. i am on anitbiotic now for congestion as prescribed by Dr. Chiu. Transition of care: patient was not received from another setting of care. Onset of symptoms was October 2018. Risk Assessment: Do you want to hurt yourself or someone else? Patient reports no desire to harm self or others. Initial Sepsis Screen: Does the patient meet any 2 criteria? No. Patient's initial sepsis screen is negative. Does the patient have a suspected source of infection? No. Patient's initial sepsis screen is negative. Care prior to arrival: None. 01:40 Method Of Arrival: Ambulatory mg2 01:40 Acuity: ERMIAS 3 mg2 Historical: - Allergies: 01:43 NKA; mg2 - PMHx: 01:43 Multiple Sclerosis; mg2 - PSHx: 01:43 burn (graft); mg2 - Immunization history:: Flu vaccine is not up to date. - Social history:: Smoking status: Patient/guardian denies using tobacco, Patient/guardian denies using alcohol, street drugs, IV drugs. - Ebola Screening: : No symptoms or risks identified at this time. Screenin:43 Abuse screen: Denies threats or abuse. Denies injuries from another. Nutritional mg2 screening: No deficits noted. On. Tuberculosis screening: No symptoms or risk factors identified. 01:50 Fall Risk None identified. aa1 Assessment: 01:50 General: Appears in no apparent distress. uncomfortable, slender, Behavior is aa1 cooperative, appropriate for age, crying. Pain: Complains of pain in back Is chronic. Neuro: Level of Consciousness is awake, alert, obeys commands, Oriented to person, place, time, situation, Moves all extremities. Full function Gait is steady, Speech is normal. Cardiovascular: Heart tones S1 S2 present Rhythm is regular. Respiratory: Reports shortness of breath cough that is productive, Airway is patent Respiratory effort is even, unlabored, Respiratory pattern is regular, symmetrical, Breath sounds are clear bilaterally. GI: Abdomen is non-distended, Abd is soft and non tender X 4 quads. Reports nausea. : No signs and/or symptoms were reported regarding the genitourinary system. EENT: No signs and/or symptoms were reported regarding the EENT system. Derm: Skin is intact, is healthy with good turgor, Skin is pink, warm \T\ dry. Musculoskeletal: Circulation, motion, and sensation intact. Capillary refill < 3 seconds. 02:50 Reassessment: Patient appears in no apparent distress at this time. Patient and/or aa1 family updated on plan of care and expected duration. Pain level reassessed. Patient is alert, oriented x 3, equal unlabored respirations, skin warm/dry/pink. Labs sent. 03:45 Reassessment: Patient appears in no apparent distress at this time. Patient and/or aa1 family updated on plan of care and expected duration. Pain level reassessed. Patient is alert, oriented x 3, equal unlabored respirations, skin warm/dry/pink. Awaiting provider reassessment. 04:37 Reassessment: Patient appears in no apparent distress at this time. Patient is alert, aa1 oriented x 3, equal unlabored respirations, skin warm/dry/pink. Pt taken to CT at this time. 05:30 Reassessment: Patient appears in no apparent distress at this time. Patient is alert, rr5 oriented x 3, equal unlabored respirations, skin warm/dry/pink. awaiting for CT result. 06:20 Reassessment: Patient appears in no apparent distress at this time. Patient is alert, rr5 oriented x 3, equal unlabored respirations, skin warm/dry/pink. no complaints made. asleep on bed comfortably Patient denies pain at this time. Patient states feeling better. Patient states symptoms have improved. 07:30 Reassessment: Patient appears in no apparent distress at this time. Patient and/or em family updated on plan of care and expected duration. Pain level reassessed. Patient is alert, oriented x 3, equal unlabored respirations, skin warm/dry/pink. reports headache, rates pain 8/10, provider notified, new medication orders received. 07:59 Reassessment: US at bedside. em Vital Signs: 01:41 BP 148 / 98; Pulse 107; Resp 18; Temp 99.3(O); Pulse Ox 97% on R/A; Weight 49.9 kg; mg2 Height 5 ft. 0 in. (152.40 cm); Pain 7/10; 02:30 BP 129 / 80; Pulse 90; Resp 18; Pulse Ox 99% on R/A; aa1 03:30 BP 114 / 62; Pulse 116; Resp 18; Pulse Ox 100% ; aa1 04:37 BP 112 / 57; Pulse 120; Resp 16; Pulse Ox 99% on R/A; aa1 05:30 BP 115 / 70; Pulse 110; Resp 18; Pulse Ox 99% on R/A; rr5 06:36 BP 118 / 69; Pulse 99; Resp 18; Pulse Ox 97% on R/A; oe 07:30 BP 128 / 84; Pulse 96; Resp 18; Pulse Ox 99% on R/A; Pain 8/10; em 01:41 Body Mass Index 21.48 (49.90 kg, 152.40 cm) mg2 ED Course: 01:28 Patient arrived in ED. mr 01:28 Madi Chiu MD is Private Physician. mr 01:41 [facility] pm1 01:41 Kevin Kenyon MD is Attending Physician. pm1 01:41 Triage completed. mg2 01:43 Arm band placed on. mg2 01:50 Patient has correct armband on for positive identification. Bed in low position. Call aa1 light in reach. Pulse ox on. NIBP on. Warm blanket given. 02:12 Ginger Dominguez, RN is Primary Nurse. aa1 02:25 Patient moved to radiology via wheelchair. kp1 02:26 X-ray completed. Patient tolerated procedure well. kp1 02:26 Patient moved back from radiology. kp1 02:26 Chest Pa And Lat (2 Views) XRAY In Process Unspecified. EDMS 02:52 Inserted saline lock: 20 gauge in right antecubital area, using aseptic technique. oe Blood collected. 04:06 Radiology exam delayed due to test not completed at this time. kw1 07:26 CT Abd/Pelvis - W/Contrast: IV contrast only In Process Unspecified. EDMS 07:45 Madi Chiu MD is Referral Physician. piotr 07:45 Jose D Beckman MD is Referral Physician. piotr 08:09 US Abdomen Limited In Process Unspecified. EDMS 08:09 Ultrasound completed. Patient tolerated well. Notified ED Physician fatoumata. sg3 08:19 No provider procedures requiring assistance completed. em 09:06 IV discontinued, intact, bleeding controlled, No redness/swelling at site. Pressure em dressing applied. Administered Medications: 02:55 Drug: NS 0.9% 1000 ml Route: IV; Rate: 1000 ml; Site: right antecubital; aa1 03:56 Follow up: IV Status: Completed infusion; IV Intake: 1000ml aa1 02:55 Drug: Albuterol - atroVENT (3:1) (2.5 mg - 0.5 mg) 3 ml Route: Nebulizer; aa1 09:05 Follow up: Response: No adverse reaction em 02:55 Drug: SOLU-Medrol 125 mg Route: IVP; Site: right antecubital; aa1 09:05 Follow up: Response: No adverse reaction em 02:57 Drug: Zofran 4 mg Route: IVP; Site: right antecubital; aa1 09:05 Follow up: Response: No adverse reaction em 03:57 Drug: NS 0.9% 1000 ml Route: IV; Rate: 1000 ml; Site: right antecubital; aa1 09:06 Follow up: IV Status: Completed infusion; IV Intake: 1000ml em 07:42 Drug: NS 0.9% 1000 ml Route: IV; Rate: 125 ml/hr; Site: right antecubital; em 09:05 Follow up: IV Status: Completed infusion; IV Intake: 1000ml em 07:49 Drug: Pepcid 20 mg Route: IVP; Site: right antecubital; iw 09:04 Follow up: Response: No adverse reaction; Pain is decreased em 07:50 Drug: Rocephin - (cefTRIAXone) 1 grams Route: IVPB; Infused Over: 30 mins; Site: right iw antecubital; 09:05 Follow up: Response: No adverse reaction; IV Status: Completed infusion; IV Intake: 10mlem 07:50 Drug: TORadol 30 mg Route: IVP; Site: right antecubital; iw 09:05 Follow up: Response: No adverse reaction; Pain is decreased em Intake: 03:56 IV: 1000ml; Total: 1000ml. aa1 09:05 IV: 10ml; Total: 1010ml. em 09:05 IV: 1000ml; Total: 2010ml. em 09:06 IV: 1000ml; Total: 3010ml. em Outcome: 07:46 Discharge ordered by . [facility] 09:06 Discharged to home ambulatory, with family. em 09:06 Condition: good 09:06 Discharge instructions given to patient, family, Instructed on discharge instructions, follow up and referral plans. medication usage, Demonstrated understanding of instructions, follow-up care, medications, Prescriptions given X 2. 09:06 Patient left the ED. em Signatures: Dispatcher [employer] EDMS Ginger Dominguez RN RN aa1 Kevin Kenyon MD MD cha Rivera, Sangeetha mr Cabrales, Camacho, LEAD REFINER LEAD REFINER em Eliane Martinez RN RN iw Sandoval Carlson, MASTER PRINTER MASTER PRINTER pm1 Anoop Molina Kathy kp1 Shadia Nowak 1 Carole Mac 3 Huseyin Salter RN RN [facility] Malik Good, GREGORIO RN rr5 Corrections: (The following items were deleted from the chart) 03:04 02:55 NS 0.9% 1000 ml IV at 1000 ml in left antecubital aa1 aa 03:05 02:55 SOLU-Medrol 125 mg IVP in left antecubital aa aa 03:05 02:57 Zofran 4 mg IVP in left antecubital [facility] aa 09:06 09:06 IV Status: Completed infusion em em
--- NOTE | 2018-11-02 10:51 | RAD REPORT ---
EXAM DESCRIPTION: US - Abdomen Exam Limited - 11/02/2018 8:10 am CLINICAL HISTORY: ABD PAIN COMPARISON: No comparisons FINDINGS: The gallbladder demonstrates no gallstones. No pericholecystic fluid or gallbladder wall t hickening. The common bile duct is normal measuring 3 mm. The liver demonstrates no findings of intrahepatic biliary dilatation. IMPRESSION: Unremarkable examination.
--- NOTE | 2018-11-02 11:01 | RAD REPORT ---
EXAM DESCRIPTION: RAD - Chest Pa And Lat (2 Views) - 11/02/2018 2:29 am CLINICAL HISTORY: Cough;SOB Chest pain. COMPARISON: No comparisons FINDINGS: The lungs are clear. The heart is normal in size. No displaced fractures. IMPRESSION: No acute or concerning finding suspected.
== END 2018-11-02 09:06 | disposition home or self-care (01) ==
LOC: ER 01:23
DX: E86.9 Volume depletion, unspecified (principal); R11.10 Vomiting, unspecified; G35 Multiple sclerosis
CPT/HCPCS: 36415; 71046; 74177; 76705; 80053; 80074; 81003; 81015; 81025; 83690; 85025; 86308; 87086; 87088; J0696; J2405; J2930; J7030; Q9967

== ENCOUNTER 2018-11-29 15:37 | Inpatient (IN) | payer BC ==
--- OUTSIDE RECORDS SUMMARY | 2018-11-29 15:39 | XMS REPORT ---
:1980 [facility] Address [address] [place] [address] Dr. Nunes [address] [place] [id number] Care Team Providers Name Role Phone Unavailable Unavailable Unavailable Problems This patient has no known problems. Allergies, Adverse Reactions, Alerts This patient has no known allergies or adverse reactions. Medications This patient has no known medications.
--- NOTE | 2018-11-29 16:42 | RAD REPORT ---
EXAM DESCRIPTION: RAD - Chest Single View - 11/29/2018 4:37 pm CLINICAL HISTORY: CHEST PAIN Chest pain. COMPARISON: Chest Pa And Lat (2 Views) dated 11/02/2018 FINDINGS: Portable technique limits examination quality. The lungs are grossly clear. The heart is normal in size. No displaced fractures. IMPRESSION: No acute intrathoracic process suspected.
[2018-11-29 17:08] LABS: Absolute Lymphocytes (CBC) 0.9 K/uL (0.7-4.9); Absolute Monocytes 0.3 K/uL (0.1-1.3); Absolute Neutrophil 11.8 K/uL (1.8-8.0); Basophils % 0.3 % (0-1.3); Hematocrit 41.3 % (36.0-45.0); Lymphocytes % 6.6 % (15.3-44.8); MPV 6.6 fL (7.6-11.3); Monocytes % 2.1 % (3.3-12.3); RBC Red Blood Cell Count 3.98 M/uL (3.86-4.86)
[2018-11-29 17:09] LABS: Urine Blood NEGATIVE (NEG); Urine Glucose NEGATIVE (NEG); Urine Protein 2+ (NEG)
[2018-11-29 17:13] LABS: Protime INR 1.14
[2018-11-29 17:19] LABS: Urine Bacteria <20 /HPF (<20); Urine Culture Reflex Order NOT NEEDED; Urine RBC NONE SEEN /HPF (NONE SEEN)
[2018-11-29] MEDS ORDERED: NA CHLORIDE 0.9% 500 ML ONE (17:23)
[2018-11-29] MEDS ORDERED: LORazepam 2 MG/ML VIAL ONE (17:24)
[2018-11-29] MEDS ORDERED: NA CHLORIDE 0.9% 1,000 ML ONE (17:24)
[2018-11-29 17:48] LABS: Platelet Estimate INCR; Urine White Blood Cell Casts OK
[2018-11-29 17:49] LABS: Anisocytosis 2+; Blood Morphology Comment NOTED (NOT SEEN)
[2018-11-29 17:53] LABS: ALT/SGPT 20 U/L (12-78); AST/SGOT 25 U/L (15-37); Alkaline Phosphatase 97 U/L (45-117); BUN Blood Urea Nitrogen 4 mg/dL (7-18); Bilirubin Direct 0.2 mg/dL (0-0.2); Bilirubin Total 0.5 mg/dL (0.2-1.0); CKMB Creatine Kinase MB 2.7 ng/mL (0.3-3.6); Creatine Phosphokinase 57 U/L (26-192); Glucose Level 107 mg/dL (74-106); Lipase 182 U/L (73-393); Potassium 4.7 mmol/L (3.5-5.1); Protein, Total 9.4 g/dL (6.4-8.2); Sodium Level 138 mmol/L (136-145); Thyroid Stimulating Hormone 0.064 uIU/mL (0.360-3.740); Troponin (Emerg Dept Use Only) < 0.02 ng/mL (0.0-0.045)
[2018-11-29 18:00] LABS: Bicarbonate 4 mmol/L (21-32)
[2018-11-29 18:18] LABS: Arterial Blood Carboxyhemoglob 0.5 % (0-1.5); Blood Gas Oxyhemoglobin 95.5 % (94-97); Blood O2 Saturation 97.1 % (92-98.5)
[2018-11-29] MEDS ORDERED: PROMETHAZINE 25 MG/ML VIAL ONE (18:19)
--- NOTE | 2018-11-29 18:35 | RAD REPORT ---
EXAM DESCRIPTION: CT - Chest For Pe Angio - 11/29/2018 6:27 pm CLINICAL HISTORY: Chest pain. CHEST PAIN COMPARISON: No comparisons TECHNIQUE: CT angiogram of the pulmonary arteries was performed with MIP. All CT scans are performed using dose optimization technique as appropriate and may include automated exposure control or mA/KV adjustment according to patient size. FINDINGS: Significant respiratory motion artifact is present. No gross evidence of pulmonary thromboembolism. No acute aortic finding demonstrated. The lungs are clear. No significant pericardial or pleural fluid. No concerning bony finding. Prominent fatty liver. IMPRESSION: No gross evidence of pulmonary thromboembolism. No gross acute lung findings. Examination is limited by prominent respiratory motion artifact.
[2018-11-29] MEDS ORDERED: NA BICARB 8.4% 150 MEQ in D5W 1,000 ML IV SCH (19:00)
--- NOTE | 2018-11-29 19:47 | EDPHYS ---
Physician Documentation [facility] Name: Sima Mcgee Age: 38 yrs Sex: Female : 1980 Arrival Date: 11/29/2018 Time: 15:39 Bed 24 Private MD: ED Physician Kevin Kenyon HPI: 11/29 16:32 This 38 yrs old Female presents to ER via Ambulatory with complaints of snw Breathing Difficulty. 16:32 The patient has shortness of breath at rest. Onset: The symptoms/episode began/occurred snw gradually, 3 day(s) ago, and became persistent. Duration: The symptoms are continuous, and are unchanged since they started. Associated signs and symptoms: Pertinent positives: non-productive cough, nausea, vomiting. Severity of symptoms: At their worst the symptoms were moderate in the emergency department the symptoms are unchanged. The patient has experienced similar episodes in the past. It is unknown whether or not the patient has recently seen a physician, sees Dr. Chiu. 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 - Social history:: Smoking status: Patient/guardian denies using tobacco. - Ebola Screening: : No symptoms or risks identified at this time. ROS: 16:28 Eyes: Negative for injury, pain, redness, and discharge, ENT: Negative for injury, snw pain, and discharge, Neck: Negative for injury, pain, and swelling. 16:28 Back: Negative for injury and pain, : Negative for injury, bleeding, discharge, and swelling, MS/Extremity: Negative for injury and deformity, Skin: Negative for injury, rash, and discoloration, Neuro: Negative for headache, weakness, numbness, tingling, and seizure. 16:28 Constitutional: Positive for body aches, fatigue, malaise, poor PO intake. 16:28 Cardiovascular: Positive for chest pain, palpitations. 16:28 Respiratory: Positive for shortness of breath, at rest. 16:28 Abdomen/GI: Positive for nausea and vomiting. 16:28 Psych: Positive for anxiety. Exam: 16:28 Abdomen/GI: Soft, non-tender, with normal bowel sounds. No distension or tympany. No snw guarding or rebound. No evidence of tenderness throughout. Back: No spinal tenderness. No costovertebral tenderness. Full range of motion. MS/ Extremity: Pulses equal, no cyanosis. Neurovascular intact. Full, normal range of motion. Neuro: Awake and alert, GCS 15, oriented to person, place, time, and situation. Cranial nerves II-XII grossly intact. Motor strength 5/5 in all extremities. Sensory grossly intact. Cerebellar exam normal. Normal gait. Psych: Awake, alert, with orientation to person, place and time. Behavior, mood, and affect are within normal limits. 16:28 Head/Face: Normocephalic, atraumatic. Eyes: Pupils equal round and reactive to light, extra-ocular motions intact. Lids and lashes normal. Conjunctiva and sclera are non-icteric and not injected. Cornea within normal limits. Periorbital areas with no swelling, redness, or edema. ENT: Nares patent. No nasal discharge, no septal abnormalities noted. Tympanic membranes are normal and external auditory canals are clear. Oropharynx with no redness, swelling, or masses, exudates, or evidence of obstruction, uvula midline. Mucous membranes moist. Neck: Trachea midline, no thyromegaly or masses palpated, and no cervical lymphadenopathy. Supple, full range of motion without nuchal rigidity, or vertebral point tenderness. No Meningismus. Chest/axilla: Normal chest wall appearance and motion. Nontender with no deformity. No lesions are appreciated. Respiratory: Lungs have equal breath sounds bilaterally, clear to auscultation and percussion. No rales, rhonchi or wheezes noted. No increased work of breathing, no retractions or nasal flaring. Tachypnea 16:28 Constitutional: The patient appears awake, anxious, frail, restless, uncomfortable. 16:28 Cardiovascular: Rate: tachycardic, Rhythm: regular, Pulses: no pulse deficits are appreciated, Heart sounds: normal, Edema: is not appreciated. 16:28 Skin: Appearance: Color: Moisture: dry. Vital Signs: 16:09 BP 155 / 83; Pulse 111; Resp 16; Temp 99.4; Pulse Ox 98% on R/A; Weight 49.9 kg; Height la1 5 ft. 0 in. (152.40 cm); 17:48 BP 125 / 64; Pulse 108; Resp 28; Temp 98.6; Pulse Ox 100% on R/A; mg2 19:00 Pulse 112; Resp 32 S; Pulse Ox 96% on R/A; sg 20:22 BP 146 / 99; Pulse 84; Resp 29; Temp 99; Pulse Ox 100% on R/A; mg2 16:09 Body Mass Index 21.48 (49.90 kg, 152.40 cm) la1 MDM: 16:10 Patient medically screened. formerly [facility] 19:16 Data reviewed: vital signs, nurses notes, lab test result(s), EKG, radiologic studies. formerly [facility] Physician consultation: Tony Peña MD was called at 19:00, was contacted at 19:00, regarding consult, patient's condition, Continue bicarb drip at same rate. 19:39 Counseling: I had a detailed discussion with the patient and/or guardian regarding: the w historical points, exam findings, and any diagnostic results supporting the discharge/admit diagnosis, lab results, radiology results, the need for further work-up and treatment in the hospital. Medication response: fluids - pt states she is mildly better. Response to treatment: the patient's symptoms have mildly improved after treatment. Physician consultation: Vinay Parr MD was called at 19:45, was contacted at 19:45, regarding admission, to the ICU. 11/29 16:14 Order name: Strep; Complete Time: 17:38 [facility] 11/29 16:14 Order name: Flu; Complete Time: 17:38 [facility] 11/29 16:18 Order name: Basic Metabolic Panel [facility] 11/29 16:18 Order name: Blood Culture Adult (2) [facility] 11/29 16:18 Order name: CBC with Diff [facility] 11/29 16:18 Order name: Ckmb [facility] 11/29 16:18 Order name: CPK [facility] 11/29 16:18 Order name: Lactate; Complete Time: 17:38 [facility] 11/29 16:18 Order name: LFT's [facility] 11/29 16:18 Order name: Lipase; Complete Time: 18:02 [facility] 11/29 16:18 Order name: Procalcitonin; Complete Time: 18:26 [facility] 11/29 18:34 Interpretation: Procalcitonin 456.87. [facility] 11/29 16:18 Order name: Protime (+inr); Complete Time: 17:38 [facility] 11/29 16:18 Order name: Ptt, Activated; Complete Time: 17:38 [facility] 11/29 16:18 Order name: Troponin (emerg Dept Use Only); Complete Time: 18:02 [facility] 11/29 16:18 Order name: Urine Microscopic Only; Complete Time: 17:38 [facility] 11/29 16:18 Order name: TSH; Complete Time: 18:02 [facility] 11/29 16:19 Order name: Basic Metabolic Panel; Complete Time: 18:02 [facility] 11/29 16:19 Order name: Blood Culture [facility] 11/29 16:20 Order name: CBC with Automated Diff; Complete Time: 17:49 [facility] 11/29 16:20 Order name: CKMB Creatine Kinase MB; Complete Time: 18:02 [facility] 11/29 16:20 Order name: Creatine Phosphokinase; Complete Time: 18:02 [facility] 11/29 16:20 Order name: Liver (Hepatic) Function; Complete Time: 18:02 [facility] 11/29 16:22 Order name: DD; Complete Time: 17:47 [facility] 11/29 17:07 Order name: Urine Dipstick--Ancillary (enter results); Complete Time: 17:12 11/29 17:07 Order name: Urine --Ancillary (enter results); Complete Time: 17:12 11/29 17:36 Order name: Throat Culture [facility] 11/29 17:41 Order name: CBC Smear Scan; Complete Time: 17:49 [facility] 11/29 18:01 Order name: ABG; Complete Time: 18:26 [facility] 11/29 18:51 Order name: Salicylate; Complete Time: 20:27 [facility] 11/29 18:51 Order name: Phosphorus; Complete Time: 20:03 [facility] 11/29 16:18 Order name: Chest Single View XRAY; Complete Time: 16:53 [facility] 11/29 16:18 Order name: Accucheck; Complete Time: 17:47 [facility] 11/29 16:18 Order name: Cardiac monitoring; Complete Time: 16:47 [facility] 11/29 16:18 Order name: EKG - Nurse/Tech; Complete Time: 16:46 w 11/29 16:18 Order name: IV Saline Lock - Large Bore; Complete Time: 17:00 w 11/29 16:18 Order name: Labs collected and sent; Complete Time: 17:00 w 11/29 16:18 Order name: O2 Per Protocol; Complete Time: 17:00 w 11/29 16:18 Order name: O2 Sat Monitoring; Complete Time: 17:00 w 11/29 16:18 Order name: Urine Dipstick-Ancillary (obtain specimen); Complete Time: 17:01 w 11/29 17:38 Order name: CT Chest For PE Angio; Complete Time: 18:40 snw 11/29 18:51 Order name: ETOH Level; Complete Time: 20:10 w 11/29 18:51 Order name: UDS; Complete Time: 21:11 11/29 18:55 Order name: ABG; Complete Time: 21:46 sn11/29 18:55 Order name: T4 Free; Complete Time: 20:10 11/29 20:30 Order name: CONS Physician Consult EDMS Administered Medications: 17:16 Drug: NS 0.9% (30 ml/kg) 30 ml/kg Route: IV; Rate: bolus; Site: right antecubital; mg2 20:23 Follow up: Response: No adverse reaction; IV Status: Completed infusion; IV Intake: mg2 1500ml 17:16 Drug: Ativan 1 mg Route: IVP; Site: right antecubital; mg2 17:48 Follow up: Response: No adverse reaction; Marked relief of symptoms mg2 18:08 Drug: Phenergan 6.25 mg Route: IVP; Site: right antecubital; mg2 20:23 Follow up: Response: No adverse reaction; Marked relief of symptoms mg2 18:44 Drug: D5W 1000 ml, Sodium Bicarbonate 150 mEq Route: IV; Rate: 200 ml/hr; Site: right mg2 antecubital; 20:26 Follow up: Response: No adverse reaction; IV Status: Infusion continued upon admission mg2 Point of Care Testing: Blood Glucose: 17:48 Blood Glucose: 104 mg/dL; mg2 Ranges: Critical Glucose Levels:Adult <50 mg/dl or >400 mg/dl <40 mg/dl or >180 mg/dl Disposition: 11/29/18 19:46 Hospitalization ordered by Vinay Parr for Inpatient Admission. Preliminary diagnosis are Acidosis, Thyrotoxicosis [hyperthyroidism]. - Bed requested for Intensive Care Unit. - Status is Inpatient Admission. mg2 - Condition is Fair. - Problem is an acute exacerbation. - Symptoms have worsened. UTI on Admission? No Addendum: 12/02/2018 08:41 Co-signature as Attending Physician, Kevin Kenyon MD I agree with the assessment and c kaufman plan of care. Signatures: Dispatcher [employer] EDDC Katelyn Eubanks RN RN mw Anderson, Corey, MD MD cha Therrien, Shelly, STOCK PREPARATION SUPERVISOR-C STOCK PREPARATION SUPERVISOR-Csnw Curly Pepe RN RN la1 Huseyin Salter RN RN mg2 Corrections: (The following items were deleted from the chart) 11/29 16:36 16:15 Chest Pa And Lat (2 Views)+[email or web address] ordered. [facility] EDDC 18:07 16:28 Head/Face: Normocephalic, atraumatic. Eyes: Pupils equal round and reactive to snw light, extra-ocular motions intact. Lids and lashes normal. Conjunctiva and sclera are non-icteric and not injected. Cornea within normal limits. Periorbital areas with no swelling, redness, or edema. ENT: Nares patent. No nasal discharge, no septal abnormalities noted. Tympanic membranes are normal and external auditory canals are clear. Oropharynx with no redness, swelling, or masses, exudates, or evidence of obstruction, uvula midline. Mucous membranes moist. Neck: Trachea midline, no thyromegaly or masses palpated, and no cervical lymphadenopathy. Supple, full range of motion without nuchal rigidity, or vertebral point tenderness. No Meningismus. Chest/axilla: Normal chest wall appearance and motion. Nontender with no deformity. No lesions are appreciated. Respiratory: Lungs have equal breath sounds bilaterally, clear to auscultation and percussion. No rales, rhonchi or wheezes noted. No increased work of breathing, no retractions or nasal flaring. snw 20:39 19:46 Hospitalization Ordered by Vinay Parr MD for Inpatient Admission. Preliminary diagnosis is Acidosis; Thyrotoxicosis [hyperthyroidism]. Bed requested for Intensive Care Unit. Status is Inpatient Admission. Condition is Fair. Problem is an acute exacerbation. Symptoms have worsened. UTI on Admission? No. snw 21:40 20:39 11/29/2018 19:46 Hospitalization Ordered by Vinay Parr MD for Inpatient mg2 Admission. Preliminary diagnosis is Acidosis; Thyrotoxicosis [hyperthyroidism]. Bed requested for Intensive Care Unit. Status is Inpatient Admission. Condition is Fair. Problem is an acute exacerbation. Symptoms have worsened. UTI on Admission? No. mw
--- NOTE | 2018-11-29 19:47 | ER ---
Nurse's Notes [facility] Name: Sima Mcgee Age: 38 yrs Sex: Female : 1980 Arrival Date: 11/29/2018 Time: 15:39 Bed 24 Private MD: Diagnosis: Acidosis;Thyrotoxicosis [hyperthyroidism] Presentation: 11/29 16:08 Presenting complaint: Patient states: I have been feeling very SOB and like my chest is la1 going to explode, I have been vomiting for three days. This has been going on intermittently for a few months but its much worse now. Transition of care: patient was not received from another setting of care. Onset of symptoms was November 29, 2018. Risk Assessment: Do you want to hurt yourself or someone else? Patient reports no desire to harm self or others. Initial Sepsis Screen: Does the patient meet any 2 criteria? No. Patient's initial sepsis screen is negative. Does the patient have a suspected source of infection? No. Patient's initial sepsis screen is negative. Care prior to arrival: None. 16:08 Method Of Arrival: Ambulatory la1 16:08 Acuity: ERMIAS 3 la1 Triage Assessment: 17:53 General: Appears comfortable, Behavior is calm. Respiratory: the patient has mild mg2 shortness of breath. 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 - Social history:: Smoking status: Patient/guardian denies using tobacco. - Ebola Screening: : No symptoms or risks identified at this time. Screenin:52 Abuse screen: Denies threats or abuse. Denies injuries from another. Nutritional mg2 screening: No deficits noted. Tuberculosis screening: No symptoms or risk factors identified. Fall Risk IV access (20 points). Assessment: 17:50 General: Appears uncomfortable, Behavior is cooperative. Pain: Complains of pain in mg2 chest. Pain: Pain does not radiate. Pain currently is 2 out of 10 on a pain scale. Quality of pain is described as aching, Pain began gradually, Is intermittent. Neuro: Level of Consciousness is awake, alert, obeys commands, Oriented to person, place, time, situation. Cardiovascular: Capillary refill < 3 seconds Patient's skin is warm and dry. Respiratory: Reports shortness of breath at rest Airway is patent Respiratory effort is even, Respiratory pattern is regular, symmetrical, hyperventilation tachypnea Breath sounds are clear bilaterally. in right upper lobe, left upper lobe, right middle lobe, left lower lobe and right lower lobe. GI: Reports nausea. : No signs and/or symptoms were reported regarding the genitourinary system. EENT: No signs and/or symptoms were reported regarding the EENT system. Derm: Skin is intact, is healthy with good turgor, Skin is pink, warm \\T\\ dry. normal. Musculoskeletal: Circulation, motion, and sensation intact. Capillary refill < 3 seconds. 20:21 Reassessment: Patient appears in no apparent distress at this time. Patient and/or mg2 family updated on plan of care and expected duration. Pain level reassessed. Patient is alert, oriented x 3, equal unlabored respirations, skin warm/dry/pink. patient informed about the plan for admission to ICU. patient agreed. Patient states feeling better. 20:22 Cardiovascular: Rhythm is sinus rhythm. mg2 21:00 Reassessment: icu was called. nurse is on her way to take the patient. mg2 21:19 Reassessment: Patient appears in no apparent distress at this time. Patient and/or mg2 family updated on plan of care and expected duration. Pain level reassessed. Patient is alert, oriented x 3, equal unlabored respirations, skin warm/dry/pink. Vital Signs: 16:09 BP 155 / 83; Pulse 111; Resp 16; Temp 99.4; Pulse Ox 98% on R/A; Weight 49.9 kg; Height la1 5 ft. 0 in. (152.40 cm); 17:48 BP 125 / 64; Pulse 108; Resp 28; Temp 98.6; Pulse Ox 100% on R/A; mg2 19:00 Pulse 112; Resp 32 S; Pulse Ox 96% on R/A; sg 20:22 BP 146 / 99; Pulse 84; Resp 29; Temp 99; Pulse Ox 100% on R/A; mg2 16:09 Body Mass Index 21.48 (49.90 kg, 152.40 cm) la1 ED Course: 15:39 Patient arrived in ED. rg4 16:04 Miley Recio FNP-C is [facility]. snw 16:04 Kevin Kenyon MD is Attending Physician. snw 16:09 Triage completed. la1 16:10 Arm band placed on left wrist. la1 16:18 Huseyin Salter, RN is Primary Nurse. mg2 16:29 EKG done, by ED staff, reviewed by Miley JACKSON. jp3 16:30 Pulse ox on. NIBP on. jp3 16:30 Warm blanket given. Pillow given. jp3 16:37 Chest Single View XRAY In Process Unspecified. EDMS 16:50 Urine collected: clean catch specimen, clear, matt colored. jp3 17:52 No provider procedures requiring assistance completed. Inserted saline lock: 20 gauge mg2 in right antecubital area, using aseptic technique. Blood collected. 17:52 First set of blood cultures drawn Second set of blood cultures drawn. mg2 17:53 Patient has correct armband on for positive identification. mg2 18:28 CT Chest For PE Angio In Process Unspecified. EDMS 18:28 CT completed. Patient tolerated procedure well. Patient moved back from CT. az 18:[address] Peña the [employer] mixing plant superintendent with Miley SINCLAIR for patient eb consultation. 19:45 Vinay Parr MD is Hospitalizing Provider. snw 21:19 Patient admitted, IV remains in place. mg2 Administered Medications: 17:16 Drug: NS 0.9% (30 ml/kg) 30 ml/kg Route: IV; Rate: bolus; Site: right antecubital; mg2 20:23 Follow up: Response: No adverse reaction; IV Status: Completed infusion; IV Intake: mg2 1500ml 17:16 Drug: Ativan 1 mg Route: IVP; Site: right antecubital; mg2 17:48 Follow up: Response: No adverse reaction; Marked relief of symptoms mg2 18:08 Drug: Phenergan 6.25 mg Route: IVP; Site: right antecubital; mg2 20:23 Follow up: Response: No adverse reaction; Marked relief of symptoms mg2 18:44 Drug: D5W 1000 ml, Sodium Bicarbonate 150 mEq Route: IV; Rate: 200 ml/hr; Site: right mg2 antecubital; 20:26 Follow up: Response: No adverse reaction; IV Status: Infusion continued upon admission mg2 Point of Care Testing: Blood Glucose: 17:48 Blood Glucose: 104 mg/dL; mg2 Ranges: Intake: 20:23 IV: 1500ml; Total: 1500ml. mg2 Outcome: 19:46 Decision to Hospitalize by Provider. snw 21:19 Admitted to ICU accompanied by nurse, via stretcher, room 3, on monitor, with chart, mg2 Report called to GREGORIO Vaz 21:19 Condition: stable 21:19 Instructed on the need for admit, Demonstrated understanding of instructions. 21:40 Patient left the ED. mg2 Signatures: Dispatcher [employer] EDMS Naveed Berrios, RN RN sg Miley Recio, BELTING INSPECTOR-C BELTING INSPECTOR-Csnw Curly Pepe RN RN Azalea Lewis Elizabeth eb Gardose, Michele, RN RN mg2 Suman Gusman jp3 Nevin Frausto Corrections: (The following items were deleted from the chart) 20:27 20:22 BP 146 / 99; Pulse 84bpm; Resp 18bpm; Pulse Ox 100% RA; Temp 99F; mg2 mg2
[2018-11-29] MEDS ORDERED: MAGNESIUM HYDROXIDE 8% 30 ML PO PRN (20:22)
[2018-11-29] MEDS ORDERED: ACETAMINOPHEN 500 MG TAB PO PRN (20:22)
[2018-11-29 20:59] LABS: Barbiturates NEGATIVE (NEGATIVE); Benzodiazepines NEGATIVE (NEGATIVE); Cocaine NEGATIVE (NEGATIVE); METHAMPHETAM NEGATIVE (NEGATIVE); Methadone NEGATIVE (NEGATIVE); Opiates POSITIVE (NEGATIVE); Phencyclidine NEGATIVE (NEGATIVE); THC Cannibis NEGATIVE (NEGATIVE)
[2018-11-29] MEDS ORDERED: D5W 1,000 ML with NA BICARB 8.4% 100 MEQ IV SCH ×2 (21:00)
[2018-11-29] MEDS ORDERED: NA CHLORIDE 0.9% 1,000 ML IV SCH (21:00)
[2018-11-29 21:36] LABS: Blood O2 Saturation 97.4 % (92-98.5)
[2018-11-29 21:37] LABS: Arterial Blood Carboxyhemoglob 0.8 % (0-1.5); Blood Gas Oxyhemoglobin 95.7 % (94-97); Blood Gas RHB 95.7 %
[2018-11-29 22:14] VITALS: BMI 19.1
[2018-11-29] MEDS: HYDROCORTISONE SUC 100 MG INJ IV SCH (22:28)
[2018-11-30] MEDS ORDERED: D5W 1,000 ML IV ONE (01:10)
[2018-11-30] MEDS: ALBUTEROL 2.5 MG/3 ML NEB SOL NEB SCH ×4 (02:00→20:00)
[2018-11-30] MEDS: IPRATROPIUM BROM 0.5MG/2.5ML NEB SCH ×4 (02:00→20:00)
[2018-11-30 05:30] LABS: Absolute Lymphocytes (CBC) 1.4 K/uL (0.7-4.9); Absolute Monocytes 0.6 K/uL (0.1-1.3); Absolute Neutrophil 7.5 K/uL (1.8-8.0); Basophils % 0.3 % (0-1.3); Hematocrit 30.6 % (36.0-45.0); Lymphocytes % 14.3 % (15.3-44.8); MPV 6.5 fL (7.6-11.3); Monocytes % 6.2 % (3.3-12.3); RBC Red Blood Cell Count 3.09 M/uL (3.86-4.86)
[2018-11-30] MEDS: LEVOTHYROXINE SOD 0.125 MG TAB PO SCH (05:32)
[2018-11-30 05:50] LABS: ALT/SGPT 14 U/L (12-78); AST/SGOT 18 U/L (15-37); Albumin 3.9 g/dL (3.4-5.0); Alkaline Phosphatase 71 U/L (45-117); BUN Blood Urea Nitrogen 3 mg/dL (7-18); Bicarbonate 17 mmol/L (21-32); Bilirubin Total 0.9 mg/dL (0.2-1.0); Glucose Level 111 mg/dL (74-106); Potassium 3.2 mmol/L (3.5-5.1); Sodium Level 139 mmol/L (136-145)
[2018-11-30] MEDS ORDERED: PHENOL 1.4% ORAL SPRAY 180ML MM PRN (06:01)
[2018-11-30] MEDS ORDERED: POTASSIUM CL SA 10 MEQ TAB PO ONE (06:05)
[2018-11-30 06:12] LABS: Folic Acid, (Folate) 11.3 ng/mL (3.1-17.5)
[2018-11-30] MEDS: POTASS/SODIUM PHOSPHATE 1 PKT POWD.PACK PO SCH ×3 (06:16→09:02)
[2018-11-30] MEDS: ONDANSETRON 4 MG/2 ML VIAL IV PRN ×3 (06:16→17:11)
[2018-11-30] MEDS ORDERED: WATER FOR INJ,STERILE 10 ML IV SCH (08:00)
[2018-11-30] MEDS: ENOXAPARIN 40 MG/0.4 ML SQ SCH (08:01)
[2018-11-30] MEDS: HYDROCORTISONE SUC 100 MG INJ IV SCH ×2 (08:01→20:33)
--- NOTE | 2018-11-30 10:08 | EKG ---
Test Date: 2018-11-29 Test Time: 16:29:41 Watchguard: DOMINIC MEASUREMENT RESULTS: Intervals: Rate: 103 VA: 116 QRSD: 76 QT: 458 QTc: 599 Thompson: P: 75 VA: 116 QRS: 65 T: 44 INTERPRETIVE STATEMENTS: Sinus tachycardia Nonspecific ST abnormality Abnormal ECG Compared to ECG 09/27/2017 13:51:50 ST (T wave) deviation now present Sinus rhythm no longer present Electronically Signed On 11-30-18 10:05:44 CDT by Kwan Jim
--- NOTE | 2018-11-30 12:48 | P.PN ---
Subjective Date of Service: 11/30/18 Subjective: Improving Patient seen and examined at bedside. Boyfriend at bedside. Chart reviewed and case discussed with nursing staff. Patient reports symptomatic improvement. Reports improved nausea and vomiting with Zofran. No other complaints this morning. Denies any chest pain, shortness of breath, headache, vision changes, other GI or complaints Review of Systems 10-point ROS is otherwise unremarkable Physical Examination - Vital Signs Temperature: 97.1 F Blood Pressure: 109/70 Pulse: 96 Respirations: 20 Pulse Ox (%): 99 - Physical Exam General: Alert, In no apparent distress, Oriented x3 Respiratory: Clear to auscultation bilaterally, Normal air movement Cardiovascular: Regular rate/rhythm, Normal S1 S2 Gastrointestinal: Normal bowel sounds, No tenderness - Studies Laboratory Data (last 24 hrs) 11/29/18 19:39: Phosphorus 3.2 11/29/18 16:45: PT 13.4 H, INR 1.14, APTT 37.6 H 11/29/18 16:45: WBC 13.0 H, Hgb 12.8, Hct 41.3, Plt Count 1086 H* 11/29/18 16:45: Sodium 138, Potassium 4.7, BUN 4 L, Creatinine 0.87, Glucose 107 H, Total Bilirubin 0.5, AST 25, ALT 20, Alkaline Phosphatase 97, Lipase 182 Microbiology Data (last 24 hrs): 11/29/18 16:45 Throat Group A Streptococcus Rapid Screen - Final 11/29/18 16:45 Nasopharnyx Influenza Type A Antigen Screen - Final 11/29/18 16:45 Nasopharnyx Influenza Type B Antigen Screen - Final Assessment And Plan - Current Problems (Diagnosis) (1) Metabolic acidosis Current Visit: Yes Status: Acute Plan: Possibly secondary to drug ingestion leading to metabolic acidosis, with respiratory compensation. -Patient does have a prior history of drug ingestion, accidental. Significant other in the room seems to be nodding off, so likely that there could be some drug ingestion that caused patient to have nausea/vomiting leading to metabolic acidosis with respiratory compensation. -Other differential would include oxoproline toxicity secondary to acetaminophen metabolism. Patient does state that she takes Tylenol frequently along with ibuprofen. -Continue bicarb drip. Acetaminophen levels ordered, pending. Patient will need to be educated on limiting Tylenol usage. Nephrology consulted, recommendations appreciated. (2) Multiple sclerosis Current Visit: Yes Status: Acute (3) History of drug abuse Current Visit: Yes Status: Acute - Plan DVT prophylaxis: Lovenox GI Prophylaxis: Protonix Diet: Regular Disposition: Clinically, patient is improving. Vital signs stable. Nausea/ vomiting has resolved. Transfer to the floor.
[2018-11-30] MEDS: D5W 1,000 ML with NA BICARB 8.4% 100 MEQ IV SCH ×4 (13:18→23:22)
[2018-11-30] MEDS ORDERED: POTASSIUM 25 MEQ EFFERV TAB PO ONE (14:47)
--- NOTE | 2018-11-30 17:34 | CON ---
Date of Consultation: 11/30/2018 Reason For Consultation: Metabolic acidosis. History Of Present Illness: Ms. Eddie Mcgee is a 38-year-old female who presented to the emerg ency room in severe nausea and vomiting. A consultation was requested for severe anion gap metabolic acidosis. The patient was tachypneic on arrival and it appeared that the patient was reacting to th e metabolic acidosis which she had. The patient did not have any signs of infection. Lactic acid wa s normal. Patient does not have any history of diabetes. The patient did not have any known history of ingestion. The patient does take acetaminophen and various forms of both [id number] and pr escription pain medication and combination [place]. The patient is currently seen in the ICU. She has been receiving IV bicarbonate fluid overnight. She is feeling much better. Nausea, vomiting resolv ed, and the patient's respiratory rate which in the 30s in the emergency room has also improved and n ow she appears to be at a baseline physical state compared to normal. She currently denies any fever s, chills, chest pain, shortness of breath, nausea, vomiting, or diarrhea. Objective: Vital Signs: Blood pressure is 109/70, pulse 96, afebrile. General: No acute distress. Heart: Regular rate, rhythm. No murmurs, rubs, gallops. Lungs: Clear to auscultation bilaterally. Abdomen: Soft, nontender, nondistended. Positive bowel sounds x4. Extremities: No significant edema. Laboratory Data: CBC had initial leukocytosis but that improved, and also had significant elevated p latelet count of 1000, which improved to 761. Serum chemistry on admission had shown sodium 138, pot assium 4.7, chloride 107, bicarb level 4, BUN 4, creatinine 0.87, glucose 107. Lactic acid was 1.8, calcium is 8.7. Hepatic panel was within normal limits. TSH 0.64 with a reflex T4 at 0.64. Procalc itonin was highly elevated at 456.87. Phosphorus was 3.2. Followup labs from today had shown a sodi um 139, potassium 3.2, chloride 107, CO2 17, BUN 3, creatinine 0.53, glucose 111, calcium 7.8, and ph osphorus of 2. Her UA had shown 4+ ketones. No signs of infection at this time. Tox screen had garrett wn positive for opiates, salicylate was 3. Acetaminophen level not noted. Current medications were reviewed; was initiated on levothyroxine, continues on sodium bicarbonate wi th 100 mEq of 8.4% sodium bicarb. She did receive 1 dose of potassium chloride, 40 mEq x1 for hypoka lemia. Remainder of medications noted. Impression: 1.Metabolic acidosis. 2.Tachypnea, improved. Severe nausea and vomiting, possibly in the setting of metabolic abnormalities. 1.Chronic acetaminophen ingestion. Plan: The patient did not have any other obvious sources for her metabolic acidosis. It is unclear if she had taken any other substances, which may not have been picked up by the tox screen; however, she does have a history of taking not only the acetaminophen from her pain medication, but also from [id number] acetaminophen which she states that she takes a very high amount at times. She is u nable to quantify how many tablets, but stated that it was at least several throughout the day and so metimes maybe even more than 5 or 6 tablets. She may have metabolic acidosis from acetaminophen meta bolites. I have ordered a urinary anion gap, which may be beneficial at this time despite her use of the bicarbonate fluid. I have also ordered a urinary organic acid screen which unfortunately is a s end-out test, but that may clear up if she does have the acetaminophen metabolite 5-oxoproline in her urine. In the meantime, we will continue sodium bicarbonate administration. She is responding well . Clinically, she appears much better. I have warned her about the overuse of acetaminophen and we will follow up her acetaminophen levels to ensure that she does not have high levels. I stopped acet aminophen on her orders at this time, and we will continue to follow. Thank you kindly for the consultation. MARTELL Voice ID: [id number] Report ID: [id number]
--- NOTE | 2018-11-30 20:52 | P.HP ---
Certification for Inpatient Patient admitted to: Inpatient Patient will require the following post-hospital care: Home Health Services Practitioner: I am a practitioner with admitting privileges, knowledge of patient current condition, hospital course, and medical plan of care. Services: Services provided to patient in accordance with Admission requirements found in Title 42 Section 412.3 of the Code of Federal Regulations Patient History Date of Service: 11/29/18 Reason for admission: Severe metabolic acidosis/tachypnea/generalized weakness/ thrombocytosis/ History of Present Illness: Patient is a 38-year-old female who came to the hospital because of shortness of breath and intractable nausea and vomiting. Patient has been vomiting for the last 3 days. Since that time she has become more she is more short of breath. She feels like her chest is burning. She says she was not able to stop her breathing so she came into the ER for further evaluation. Her respirations were so rapid that she came to the hospital for further evaluation. In the emergency room she was found have a bicarb of 3. patient has severe metabolic acidosis which was causing her to be tachypnea. This was exacerbated by the intractable nausea and vomiting. Patient will need to be admitted to the hospital for further treatment. Because of the severity of her acidosis she needs to be in the intensive care unit. Concern for further arrhythmias and other physiologic derangements that can occur. patient also needs treatment for her multiple sclerosis which can be done as an outpatient. Allergies No Known Allergies Allergy (Verified 11/30/18 01:16) Home Medications: NK [No Home Meds] 11/30/18 - Past Medical/Surgical History Has patient received pneumonia vaccine in the past: No Diabetic: No -: Multiple Sclerosis Past Surgical History: Patient denies surgical history - Family History Dad Medical History: Liver disease - Social History Smoking Status: Never smoker Alcohol use: No CD- Drugs: Yes Caffeine use: Yes Place of Residence: Home Review of Systems 10-point ROS is otherwise unremarkable Physical Examination - Vital Signs Temperature: 97.1 F Blood Pressure: 109/70 Pulse: 96 Respirations: 20 Pulse Ox (%): 99 - Physical Exam General: Alert, In no apparent distress, Oriented x3 HEENT: Atraumatic, PERRLA, Mucous membr. moist/pink, EOMI, Sclerae nonicteric Neck: Supple, 2+ carotid pulse no bruit, No LAD, Without JVD or thyroid abnormality Respiratory: Other ( Patient is tachypneic) Cardiovascular: Normal S1 S2, Other ( tachycardic) Gastrointestinal: Normal bowel sounds, Soft and benign, Non-distended, No tenderness Musculoskeletal: No clubbing, No swelling, No tenderness Integumentary: No rashes Neurological: Normal speech, Normal tone, Sensation intact, Cranial nerves 3-12 intact, Normal affect, Abnormal strength Lymphatics: No axilla or inguinal lymphadenopathy - Studies Microbiology Data (last 24 hrs): 11/29/18 16:45 Throat Group A Streptococcus Rapid Screen - Final 11/29/18 16:45 Nasopharnyx Influenza Type A Antigen Screen - Final 11/29/18 16:45 Nasopharnyx Influenza Type B Antigen Screen - Final Assessment & Plan - Problems (Diagnosis) (1) Metabolic acidosis, normal anion gap (NAG) Current Visit: Yes Status: Acute (2) Tachypnea Current Visit: Yes Status: Acute (3) Intractable nausea and vomiting Current Visit: Yes Status: Acute (4) History of multiple sclerosis Current Visit: Yes Status: Acute - Plan Plan: 1. start a bicarbonate drip 2. Antiemetics 3. IV hydration 4. monitor renal function closely 5. IV steroids 6. patient will need to be monitored on telemetry and because of the severity of her metabolic acidosis will be best to watch her and I see very closely. 7. GI and DVT prophylaxis Discharge Plan: Home Plan to discharge in: Greater than 2 days - Advance Directives Does patient have a Living Will: No Does patient have a Durable POA for Healthcare: No - Code Status/Comfort Care Code Status Assessed: Yes Code Status: Full Code Critical Care: Yes Time Spent Managing PTS Care (In Minutes): 50
[2018-12-01] MEDS: IPRATROPIUM BROM 0.5MG/2.5ML NEB SCH ×2 (02:00→08:00)
[2018-12-01] MEDS: ALBUTEROL 2.5 MG/3 ML NEB SOL NEB SCH ×2 (02:00→08:00)
[2018-12-01 05:23] LABS: BUN Blood Urea Nitrogen 7 mg/dL (7-18); Bicarbonate 22 mmol/L (21-32); Glucose Level 118 mg/dL (74-106); Phosphorus 1.9 mg/dL (2.5-4.9); Sodium Level 141 mmol/L (136-145)
[2018-12-01] MEDS ORDERED: POTASS/SODIUM PHOSPHATE 1 PKT POWD.PACK PO SCH (06:00)
[2018-12-01] MEDS: LEVOTHYROXINE SOD 0.125 MG TAB PO SCH (06:10)
[2018-12-01] MEDS: POTASS/SODIUM PHOSPHATE 1 PKT POWD.PACK PO SCH ×3 (08:00→09:22)
[2018-12-01] MEDS: HYDROCORTISONE SUC 100 MG INJ IV SCH (09:22)
[2018-12-01] MEDS: ENOXAPARIN 40 MG/0.4 ML SQ SCH (09:22)
[2018-12-01] MEDS: ONDANSETRON 4 MG/2 ML VIAL IV PRN (09:50)
[2018-12-01 10:47] VITALS: O2SAT 98
--- NOTE | 2018-12-01 16:44 | P.DS ---
Admission Date: 11/29/18 Discharge Date: 12/01/18 Disposition: ROUTINE DISCHARGE Discharge Condition: GOOD Reason for Admission: Severe metabolic acidosis/tachypnea/generalized weakness/ thrombocytosis/ Consultations: Nephrology - Problems (1) Metabolic acidosis Status: Acute (2) Multiple sclerosis Status: Acute (3) History of drug abuse Status: Acute Brief History of Present Illness: Patient is a 38-year-old female who came to the hospital because of shortness of breath and intractable nausea and vomiting. Patient has been vomiting for the last 3 days. Since that time she has become more she is more short of breath. She feels like her chest is burning. She says she was not able to stop her breathing so she came into the ER for further evaluation. Her respirations were so rapid that she came to the hospital for further evaluation. In the emergency room she was found have a bicarb of 3. patient has severe metabolic acidosis which was causing her to be tachypnea. This was exacerbated by the intractable nausea and vomiting. Patient will need to be admitted to the hospital for further treatment. Because of the severity of her acidosis she needs to be in the intensive care unit. Concern for further arrhythmias and other physiologic derangements that can occur. patient also needs treatment for her multiple sclerosis which can be done as an outpatient. Hospital Course: Patient's metabolic acidosis was thought to be possibly secondary to drug ingestion leading to metabolic acidosis with respiratory compensation. Patient states that she was taking a lot of pattern all frequently along with ibuprofen. It is the patient may also have a history of drug abuse/congestion. She was admitted to the ICU, Nephrology was consulted, started on bicarb drip. Lab work was done, she was found to have elevated acetaminophen levels. This would support the theory of oxoproline toxicity secondary to acetaminophen metabolism. A specialized gas chromatography testing for oxoproline toxicity, the results likely will not be back for a few days. Clinically, the patient is symptoms improved on bicarb drip and IV fluids. Her lab work also improved, her metabolic acidosis resolved. Once clinically stable, she was transferred out of the ICU to the floor and started on a regular diet. She tolerated the diet well. Her TSH levels were very low, along with T4. This would be suspicious for secondary hypothyroidism, pituitary involvement. Patient developed no other symptoms or endorse no other symptoms of headache, vision changes etc. Unsure if this is due to the acuity of her situation or a true reading with further lab work to repeat thyroid levels and further management. Prior to discharge, her nausea and vomiting had drastically improved, almost resolved. She was tolerating a diet, ambulating without concerns. Her lab work was stable and her vital signs were also hemodynamically stable. She was then cleared for discharge by nephrology point of view. She was recommended to discontinue Tylenol and acetaminophen products. Her treatment plan/diagnoses were explained to her, all questions were answered and patient verbalized understanding. She was then discharged home in a safe and stable manner. She will follow up with her primary care physician in 2-3 days. She will follow up with Nephrology in 2 weeks. Vital Signs/Physical Exam: Temp Pulse Resp BP Pulse Ox 97.8 F 81 16 89/54 L 98 12/01/18 08:00 12/01/18 08:00 12/01/18 08:00 12/01/18 08:00 12/01/18 08:00 General: Alert, In no apparent distress, Oriented x3 HEENT: Atraumatic, PERRLA, EOMI Neck: Supple, JVD not distended Respiratory: Clear to auscultation bilaterally, Normal air movement Cardiovascular: Regular rate/rhythm, Normal S1 S2 Gastrointestinal: Normal bowel sounds, No tenderness Musculoskeletal: No tenderness Integumentary: No rashes Neurological: Normal speech, Normal tone, Normal affect Lymphatics: No axilla or inguinal lymphadenopathy Laboratory Data at Discharge: WBC 9.5 K/uL (4.3-10.9) D 11/30/18 05:07 Hgb 10.5 g/dL (12.0-15.0) L 11/30/18 05:07 Hct 30.6 % (36.0-45.0) L D 11/30/18 05:07 Plt Count 761 K/uL (152-406) H D 11/30/18 05:07 PT 13.4 SECONDS (9.5-12.5) H 11/29/18 16:45 INR 1.14 11/29/18 16:45 APTT 37.6 SECONDS (24.3-36.9) H 11/29/18 16:45 Sodium 141 mmol/L (136-145) 12/01/18 04:39 Potassium 4.0 mmol/L (3.5-5.1) 12/01/18 04:39 BUN 7 mg/dL (7-18) 12/01/18 04:39 Creatinine 0.67 mg/dL (0.55-1.3) 12/01/18 04:39 Glucose 118 mg/dL (74-106) H 12/01/18 04:39 Phosphorus 1.9 mg/dL (2.5-4.9) L 12/01/18 04:39 Magnesium 2.0 mg/dL (1.8-2.4) 11/30/18 05:07 Total Bilirubin 0.9 mg/dL (0.2-1.0) 11/30/18 05:07 AST 18 U/L (15-37) 11/30/18 05:07 ALT 14 U/L (12-78) 11/30/18 05:07 Alkaline Phosphatase 71 U/L (45-117) 11/30/18 05:07 Lipase 182 U/L (73-393) 11/29/18 16:45 Home Medications: Ondansetron [Zofran] 4 mg PO Q6H PRN #15 tab 12/01/18 New Medications: Ondansetron [Zofran] 4 mg PO Q6H PRN #15 tab PRN Reason: Nausea / Vomiting Patient Discharge Instructions: Please follow up with the primary care physician in 2-3 days. Please follow up with Nephrology in 2 weeks. Please avoid Tylenol/acetaminophen products as we discussed. Please return to the emergency room for worsening symptoms. New medications: Levothyroxine, medication for thyroid. Zofran, medication for your nausea. Diet: Regular Activity: Ad dean Followup: Manjit Ojeda MD [Primary Care Provider] - Tony Peña MD [ACTIVE - CAN ADMIT] - Time spent managing pt's care (in minutes): 55
[2018-12-01 16:54] VITALS: BP 117/71; TEMP 98.6
== END 2018-12-01 13:40 | disposition home or self-care (01) | DRG 641 ==
LOC: ER 15:37 → ERHOLD 20:23 → 3RD-ICU 21:17 → 4TH 11-30 12:40
PROVIDERS: ADMIT Hospitalist; ATTEND Family Medicine
DX: E87.2 Acidosis (principal); T39.1X5A Adverse effect of 4-Aminophenol derivatives, initial encounter; G35 Multiple sclerosis
CPT/HCPCS: 36415; 71045; 71275; 80048; 80053; 80076; 80307; 80320; 80329; 81003; 81015; 81025; 82435; 82550; 82553; 82607; 82746; 82805; 82962; 83540; 83605; 83690; 83735; 84100; 84132; 84145; 84300; 84439; 84443; 84484; 85025; 85379; 85610; 85730; 87040; 87070; 87081; 87804; 93005; 96365; 96366; 96375; 99285; J1650; J1720; J2405; J2550; J7030; Q9967

== ENCOUNTER 2019-05-23 23:27 | Emergency (ER) | payer BC ==
--- OUTSIDE RECORDS SUMMARY | 2019-05-23 23:30 | XMS REPORT ---
:1980 [facility] [address] [place] [id number] Care Team Providers Name Role Phone Unavailable Unavailable Unavailable Problems This patient has no known problems. Allergies, Adverse Reactions, Alerts This patient has no known allergies or adverse reactions. Medications This patient has no known medications.
--- NOTE | 2019-05-24 00:44 | ER ---
Nurse's Notes [facility] Name: Sima Mcgee Age: 39 yrs Sex: Female : 1980 Arrival Date: 05/23/2019 Time: 23:28 Bed 18 Private MD: Diagnosis: Superficial injury of head Presentation: 05/23 23:23 Presenting complaint: Patient states: that she fell backwards earlier today and got a fc bump on the back of her head. Is now having right peripheral vision problems and her right ear is buzzing. Transition of care: [facility]. Onset of symptoms was May 23, 2019. Risk Assessment: Do you want to hurt yourself or someone else? Patient reports no desire to harm self or others. Initial Sepsis Screen: Does the patient meet any 2 criteria? HR > 90 bpm. Yes Does the patient have a suspected source of infection? No. Patient's initial sepsis screen is negative. Care prior to arrival: None. 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 - Social history:: Smoking status: Patient/guardian denies using tobacco, Patient uses street drugs, marijuana, Patient/guardian denies using alcohol. - Ebola Screening: : Patient negative for fever greater than or equal to 101.5 degrees Fahrenheit, and additional compatible Ebola Virus Disease symptoms Patient denies exposure to infectious person Patient denies travel to an Ebola-affected area in the 21 days before illness onset. - Family history:: not pertinent. - Hospitalizations: : No recent hospitalization is reported. Screenin:23 Abuse screen: Denies threats or abuse. Nutritional screening: No deficits noted. fc Tuberculosis screening: No symptoms or risk factors identified. Fall Risk Fall in past 12 months (25 points). Secondary diagnosis (15 points) MS. No IV (0 pts). Ambulatory Aid- None/Bed Rest/Nurse Assist (0 pts). Gait- Weak (10 pts.). Mental Status- Overestimates/Forgets Limitations (15 pts.). Total Kim Fall Scale indicates High Risk Score (45 or more points). Fall prevention measures have been instituted. Side Rails Up X 2 Placed Close to Nursing Station Frequent Obs/Assessments Occuring As available patient and family educated on Fall Prevention Program and Strategies. Assessment: 23:38 General: Appears in no apparent distress. comfortable, Behavior is calm, cooperative, cc3 appropriate for age. Pain: Complains of pain in right occipital area and left occipital area. Neuro: Level of Consciousness is awake, alert, obeys commands, Oriented to person, place, time, situation, Appropriate for age. Cardiovascular: Denies chest pain, Heart tones S1 S2 present Capillary refill < 3 seconds in bilateral fingers Patient's skin is warm and dry. Respiratory: Airway is patent Respiratory effort is even, unlabored, Respiratory pattern is regular, symmetrical, Breath sounds are clear bilaterally. GI: Abdomen is round non-distended, Bowel sounds present X 4 quads. Abd is soft and non tender X 4 quads. : No signs and/or symptoms were reported regarding the genitourinary system. EENT: No signs and/or symptoms were reported regarding the EENT system. Derm: Skin is intact, is healthy with good turgor, Skin is pink, warm \T\ dry. normal. Musculoskeletal: Circulation, motion, and sensation intact. Range of motion: intact in all extremities. 05/24 00:25 Reassessment: Patient appears in no apparent distress at this time. Patient and/or cc3 family updated on plan of care and expected duration. Pain level reassessed. Patient is alert, oriented x 3, equal unlabored respirations, skin warm/dry/pink. Patient denies pain at this time. 00:43 Reassessment: Patient was ordered for discharge home but after result of bloodworks. cc3 01:45 Reassessment: Patient appears in no apparent distress at this time. Patient and/or cc3 family updated on plan of care and expected duration. Pain level reassessed. Patient is alert, oriented x 3, equal unlabored respirations, skin warm/dry/pink. Dr. Rivas discharged the patient after reviewing laboratory results. No IV cannula in situ. Patient left ER vitally stable and ambulatory on hand and feet cuffs escorted by [place] traffic police officer back to intermediate. No valuables left in the patient's room. Patient denies pain at this time. Patient states feeling better. Patient states symptoms have improved. Vital Signs: 05/23 23:23 BP 144 / 97; Pulse 95; Resp 18; Temp 98.7(O); Pulse Ox 100% on R/A; Weight 52.16 kg fc (R); Height 5 ft. 0 in. (152.40 cm) (R); Pain 7/10; 05/24 00:18 BP 157 / 95; Pulse 85; Resp 17 S; Pulse Ox 100% on R/A; cc3 01:30 BP 143 / 89; Pulse 87; Resp 17 S; Pulse Ox 100% on R/A; Pain 0/10; cc3 05/23 23:23 Body Mass Index 22.46 (52.16 kg, 152.40 cm) [place] Coma Score: 00:15 Eye Response: spontaneous(4). Verbal Response: oriented(5). Motor Response: obeys rn commands(6). Total: 15. 00:42 Eye Response: spontaneous(4). Verbal Response: oriented(5). Motor Response: obeys rn commands(6). Total: 15. ED Course: 05/23 23:23 Arm band placed on Patient placed in an exam room, on a stretcher. fc 23:23 Patient has correct armband on for positive identification. Bed in low position. Call light in reach. Side rails up X 1. [place] PD officer with pt. Pulse ox on. NIBP on. 23:28 Patient arrived in ED. ds1 23:29 Anish Rivas MD is Attending Physician. rn 23:33 Triage completed. fc 23:38 Linda Fry is Primary Nurse. cc3 05/24 00:23 CT Head C Spine In Process Unspecified. EDMS 01:45 No provider procedures requiring assistance completed. Patient did not have IV access cc3 during this emergency room visit. Administered Medications: No medications were administered Outcome: 00:43 Discharge ordered by . rn 01:45 Discharged to Law Enforcement cc3 01:45 Condition: stable 01:45 Discharge instructions given to patient, Instructed on discharge instructions, follow up and referral plans. Demonstrated understanding of instructions, follow-up care. 01:49 Patient left the ED. cc3 Signatures: Dispatcher [employer] Sandra Argueta RN RN fc Sanford, Demi ds1 Anish Rivas MD MD rn Cordel, Charlene cc3 Corrections: (The following items were deleted from the chart) 02:44 01:40 Reassessment: Patient appears in no apparent distress at this time. Patient cc3 and/or family updated on plan of care and expected duration. Pain level reassessed. Patient is alert, oriented x 3, equal unlabored respirations, skin warm/dry/pink. Patient denies pain at this time. cc3
--- NOTE | 2019-05-24 00:44 | EDPHYS ---
Physician Documentation [facility] Name: Sima Mcgee Age: 39 yrs Sex: Female : 1980 Arrival Date: 05/23/2019 Time: 23:28 Bed 18 Private MD: ED Physician Anish Rivas HPI: 05/24 00:15 This 39 yrs old Female presents to ER via EMS with complaints of Head Pain. rn 00:15 The patient or guardian reports injury, pain. The complaints affect the left occipital rn area and right occipital area. Onset: The symptoms/episode began/occurred today. Associated signs and symptoms: Loss of consciousness: This patient did not experience any loss of consciousness. Pertinent positives: headache, Pertinent negatives: the patient has not experienced a loss of conciousness, double vision, incontinence, nausea, neck pain, seizure, shortness of breath, vomiting, weakness in extremities, generalized weakness. Severity of symptoms: At their worst the symptoms were mild, in the emergency department the symptoms are unchanged. The patient has experienced similar episodes in the past. Reports has multiple sclerosis, fell today while in [facility] . 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 - Social history:: Smoking status: Patient/guardian denies using tobacco, Patient uses street drugs, marijuana, Patient/guardian denies using alcohol. - Ebola Screening: : Patient negative for fever greater than or equal to 101.5 degrees Fahrenheit, and additional compatible Ebola Virus Disease symptoms Patient denies exposure to infectious person Patient denies travel to an Ebola-affected area in the 21 days before illness onset. - Family history:: not pertinent. - Hospitalizations: : No recent hospitalization is reported. ROS: 05/24 00:17 Constitutional: Negative for fever, chills, and weight loss, Eyes: Negative for injury, rn pain, redness, and discharge, Neck: Negative for injury, pain, and swelling, Cardiovascular: Negative for chest pain, palpitations, and edema, Respiratory: Negative for shortness of breath, cough, wheezing, and pleuritic chest pain, Abdomen/GI: Negative for abdominal pain, nausea, vomiting, diarrhea, and constipation, Back: Negative for injury and pain, MS/Extremity: Negative for injury and deformity, Skin: Negative for injury, rash, and discoloration, Neuro: Negative for weakness, numbness, tingling, and seizure. Exam: 00:17 Constitutional: This is a well developed, well nourished patient who is awake, alert, rn and in no acute distress. Head/Face: Normocephalic, small hematoma/contusion left forehead, no laceration. No crepitus or bony depression. Eyes: Pupils equal round and reactive to light, extra-ocular motions intact. Lids and lashes normal. Conjunctiva and sclera are non-icteric and not injected. Cornea within normal limits. Periorbital areas with no swelling, redness, or edema. ENT: No oral trauma. Neck: No midline bony tenderness. Full painless ROM. Cardiovascular: Regular rate and rhythm. No pulse deficits. Respiratory: No increased work of breathing, no retractions or nasal flaring. Abdomen/GI: soft, non-tender MS/ Extremity: Pulses equal, no cyanosis. Neurovascular intact. Full, normal range of motion. Equal circumference. Neuro: Awake and alert, GCS 15, oriented to person, place, time, and situation. Cranial nerves II-XII grossly intact. Motor strength 5/5 in all extremities. Sensory grossly intact. Cerebellar exam normal. Vital Signs: 05/23 23:23 BP 144 / 97; Pulse 95; Resp 18; Temp 98.7(O); Pulse Ox 100% on R/A; Weight 52.16 kg fc (R); Height 5 ft. 0 in. (152.40 cm) (R); Pain 7/10; 05/24 00:18 BP 157 / 95; Pulse 85; Resp 17 S; Pulse Ox 100% on R/A; cc3 01:30 BP 143 / 89; Pulse 87; Resp 17 S; Pulse Ox 100% on R/A; Pain 0/10; cc3 05/23 23:23 Body Mass Index 22.46 (52.16 kg, 152.40 cm) [place] Coma Score: 00:15 Eye Response: spontaneous(4). Verbal Response: oriented(5). Motor Response: obeys rn commands(6). Total: 15. 00:42 Eye Response: spontaneous(4). Verbal Response: oriented(5). Motor Response: obeys rn commands(6). Total: 15. MDM: 05/23 23:29 Patient medically screened. rn 05/24 00:42 Differential diagnosis: Contusion of Hematoma on Intracranial bleed- Concussion rn cerebral contusion. Data reviewed: vital signs, nurses notes, radiologic studies, CT scan, and as a result, I will discharge patient. Counseling: I had a detailed discussion with the patient and/or guardian regarding: the historical points, exam findings, and any diagnostic results supporting the discharge/admit diagnosis, radiology results, the need for outpatient follow up, to return to the emergency department if symptoms worsen or persist or if there are any questions or concerns that arise at home. Special discussion: Based on the patient's history, exam and DX evaluation, there is no indication for emergent intervention or inpatient TX. It is understood by the patient/guardian that if the SXs persist or worsen they need to return immediately for re-evaluation. I discussed with the patient/guardian in detail that at this point there is no indication for admission to the hospital. It is understood, however, that if the symptoms persist or worsen the patient needs to return immediately for re-evaluation. 05/24 00:56 Order name: [facility]; Complete Time: 01:44 rn 05/23 23:49 Order name: CT Head C Spine rn Administered Medications: No medications were administered Disposition: 05/24/19 00:43 Discharged to Home. Impression: Superficial injury of head. - Condition is Stable. - Discharge Instructions: Head Injury, Adult. - Medication Reconciliation Form, Thank You Letter, Antibiotic Education, Prescription Opioid Use form. - Follow up: Private Physician; When: As needed; Reason: Recheck today's complaints, Re-evaluation by your physician. - Problem is new. - Symptoms have improved. Signatures: Dispatcher [employer] EDSandra Billings RN RN fc Nieto, Roman, MD MD rn Cordel, Charlene cc3 Corrections: (The following items were deleted from the chart) 00:18 00:17 Constitutional: Negative for fever, chills, and weight loss, Eyes: Negative for rn injury, pain, redness, and discharge, Neck: Negative for injury, pain, and swelling, Cardiovascular: Negative for chest pain, palpitations, and edema, Respiratory: Negative for shortness of breath, cough, wheezing, and pleuritic chest pain, Abdomen/GI: Negative for abdominal pain, nausea, vomiting, diarrhea, and constipation, MS/Extremity: Negative for injury and deformity, Skin: Negative for injury, rash, and discoloration, Neuro: Negative for weakness, numbness, tingling, and seizure, rn 01:49 00:43 05/24/2019 00:43 Discharged to Home. Impression: Superficial injury of head. cc3 Condition is Stable. Forms are Medication Reconciliation Form, Thank You Letter, Antibiotic Education, Prescription Opioid Use. Follow up: Private Physician; When: As needed; Reason: Recheck today's complaints, Re-evaluation by your physician. Problem is new. Symptoms have improved. rn
[2019-05-24 01:41] LABS: BUN Blood Urea Nitrogen 12 mg/dL (7-18); Bicarbonate 26 mmol/L (21-32); Glucose Level 89 mg/dL (74-106); Potassium 3.7 mmol/L (3.5-5.1); Sodium Level 139 mmol/L (136-145)
[2019-05-24 01:54] VITALS: BP 157/95; O2SAT 100
--- NOTE | 2019-05-25 12:40 | RAD REPORT ---
EXAM DESCRIPTION: CT - CTHCSPWOC - 05/24/2019 12:33 am CLINICAL HISTORY: 39 years Female fall, headache, right arm pain TECHNIQUE: Contiguous axial CT images obtained through the brain and cervical spine without IV contr ast. Coronal and sagittal reformatted images also provided. This CT exam was performed according to our departmental dose-optimization program, which includes on e or more of the following dose reduction techniques: automated exposure control, adjustment of the m A and/or kV according to patient size, and/or use of iterative reconstruction technique. COMPARISON: No prior exams provided for comparison. FINDINGS: There is no acute skull fracture, intracranial hemorrhage, extraaxial collection, or acute transcortical infarction. The ventricles are normal in size and contour without mass effect or midli ne shift. The visualized paranasal sinuses, tympanomastoid cavities, and orbits are normal. There is no acute cervical fracture or aggressive osseous lesion. There is mild degenerative disc dis ease and uncovertebral arthrosis at C5-C6, where there is slight retrolisthesis. At this level, there is mild bilateral neural foraminal narrowing. There is central canal or neural foraminal stenosis in the cervical spine. No prevertebral or paraspinal soft tissue swelling. The lung apices are clear. IMPRESSION: No acute intracranial or cervical spine injury. 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 The interpreting radiologist is f ully responsible for the content of the report.
== END 2019-05-24 01:49 | disposition home or self-care (01) ==
LOC: ER 23:27
DX: S00.90XA Unspecified superficial injury of unspecified part of head, initial encounter (principal); W19.XXXA Unspecified fall, initial encounter; Y93.9 Activity, unspecified; Y92.149 Unspecified place in prison as the place of occurrence of the external cause
CPT/HCPCS: 36415; 70450; 72125; 80048; 99283

== ENCOUNTER 2019-06-19 10:14 | Emergency (ER) | payer BC ==
--- OUTSIDE RECORDS SUMMARY | 2019-06-19 10:22 | XMS REPORT ---
:1980 [facility] [address] [place] [address] Dr. Nunes [address] [place] [id number] Care Team Providers Name Role Phone Unavailable Unavailable Unavailable Problems This patient has no known problems. Allergies, Adverse Reactions, Alerts This patient has no known allergies or adverse reactions. Medications This patient has no known medications.
[2019-06-19 11:11] LABS: Urine Blood NEGATIVE (NEG); Urine Glucose NEGATIVE (NEG); Urine Protein TRACE (NEG); Urine Specific Gravity 1.025 (1.005-1.030)
[2019-06-19] MEDS ORDERED: FENTANYL CITR 100 MCG/2 ML ONE (11:33)
[2019-06-19] MEDS ORDERED: ONDANSETRON 4 MG/2 ML VIAL ONE (11:33)
--- NOTE | 2019-06-19 11:37 | RAD REPORT ---
EXAM DESCRIPTION: RAD - Lumbar Spine 3 Views - 06/19/2019 11:30 am CLINICAL HISTORY: Back pain FINDINGS: The alignment of the lumbar spine is satisfactory. No fracture or dislocation is seen. Sacralization L5
[2019-06-19] MEDS ORDERED: ONDANSETRON 4 MG (ODT) TAB ONE (11:41)
--- NOTE | 2019-06-19 12:11 | RAD REPORT ---
EXAM DESCRIPTION: RAD - Hip Right 2 View - 06/19/2019 11:35 am CLINICAL HISTORY: Fall down stairs 3 days earlier, persistent pain COMPARISON: None. FINDINGS: AP and frog-leg views of the right hip were obtained. There is no fracture or dislocation . No acute or destructive bony process seen. IMPRESSION: Negative right hip examination for acute findings.
[2019-06-19] MEDS ORDERED: CEFTRIAXONE 1000 MG/VIAL ONE (12:24)
[2019-06-19] MEDS ORDERED: LIDOCAINE 1% MPF 2 ML AMPULE ONE (12:24)
[2019-06-19] MEDS ORDERED: DIAZEPAM 2 MG TABLET ONE (12:24)
--- NOTE | 2019-06-19 12:25 | ER ---
Nurse's Notes [facility] Name: Sima Mcgee Age: 39 yrs Sex: Female : 1980 Arrival Date: 06/19/2019 Time: 10:16 Bed 15 Private MD: Diagnosis: Fall (on) (from) unspecified stairs and steps;Pain in right hip;Urinary tract infection, site not specified Presentation: 06/19 10:18 Presenting complaint: Patient states: I fell from the top of my stairs to the bottom of jl7 the stairs, complains of right hip pain that hasn't improved. Transition of care: patient was not received from another setting of care. Onset of symptoms was June 16, 2019. Risk Assessment: Do you want to hurt yourself or someone else? Patient reports no desire to harm self or others. Initial Sepsis Screen: Does the patient meet any 2 criteria? No. Patient's initial sepsis screen is negative. Does the patient have a suspected source of infection? No. Patient's initial sepsis screen is negative. Care prior to arrival: None. 10:18 Method Of Arrival: Ambulatory [facility] 10:18 Acuity: ERMIAS 4 jl7 Triage Assessment: 10:21 General: Appears in no apparent distress. uncomfortable, Behavior is cooperative, jl7 anxious. Pain: Complains of pain in right hip Pain currently is 9 out of 10 on a pain scale. Pain began 2-3 days ago. Is continuous. Neuro: Musculoskeletal: Range of motion: intact in all extremities, Swelling absent. 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 - Social history:: Smoking status: Patient/guardian denies using tobacco. - Ebola Screening: : No symptoms or risks identified at this time. Screenin:35 Abuse screen: Denies threats or abuse. Denies injuries from another. Nutritional ca1 screening: No deficits noted. Tuberculosis screening: No symptoms or risk factors identified. Fall Risk None identified. Assessment: 10:35 General: Appears in no apparent distress. comfortable, Behavior is calm, cooperative, ca1 appropriate for age. Pain: Complains of pain in right hip and pelvis and right iliac crest Pain currently is 9 out of 10 on a pain scale. Pain began 2-3 days ago. Is intermittent. Neuro: Level of Consciousness is awake, alert, obeys commands, Oriented to person, place, time, situation, Appropriate for age. Cardiovascular: Heart tones S1 S2 Capillary refill < 3 seconds Patient's skin is warm and dry. Respiratory: Airway is patent Respiratory effort is even, unlabored, Respiratory pattern is regular, symmetrical, Breath sounds are clear bilaterally. GI: Abdomen is flat, non-distended, Bowel sounds present X 4 quads. Abd is soft and non tender X 4 quads. Reports nausea, vomiting. : Urine is cloudy. EENT: No deficits noted. No signs and/or symptoms were reported regarding the EENT system. Derm: Skin is intact, is healthy with good turgor, Skin is pink, warm \T\ dry. Musculoskeletal: Circulation, motion, and sensation intact. Capillary refill < 3 seconds, Range of motion: intact in all extremities. 12:09 Reassessment: Patient appears in no apparent distress at this time. Patient is alert, ca1 oriented x 3, equal unlabored respirations, skin warm/dry/pink. 13:21 Reassessment: Patient appears in no apparent distress at this time. Patient is alert, ca1 oriented x 3, equal unlabored respirations, skin warm/dry/pink. Vital Signs: 10:21 BP 145 / 94; Pulse 99; Resp 17 S; Temp 98.5(O); Pulse Ox 100% on R/A; Weight 52.16 kg jl7 (R); Height 5 ft. 0 in. (152.40 cm) (R); Pain 9/10; 11:55 BP 133 / 88; Pulse 89; Resp 17; Pulse Ox 100% on R/A; mh5 13:21 BP 129 / 82; Pulse 97; Resp 16 S; Pulse Ox 100% on R/A; ca1 10:21 Body Mass Index 22.46 (52.16 kg, 152.40 cm) 7 ED Course: 10:16 Patient arrived in ED. as 10:20 Triage completed. jl7 10:21 Arm band placed on right wrist. jl7 10:32 Emilia Fatima, RN is Primary Nurse. ca1 10:35 Patient has correct armband on for positive identification. Placed in gown. Bed in low ca1 position. Call light in reach. Side rails up X 1. Pulse ox on. NIBP on. Warm blanket given. 10:35 No provider procedures requiring assistance completed. ca1 10:41 Miley Recio FNP-C is PHCP. snw 10:41 Kevin Kenyon MD is Attending Physician. snw 11:20 Patient moved to radiology via wheelchair. ca1 11:33 XRAY Hip RIGHT 2 view In Process Unspecified. EDMS 11:33 Lumbar Spine (3 Views) XRAY In Process Unspecified. EDMS 13:45 Patient did not have IV access during this emergency room visit. ca1 Administered Medications: 11:40 Drug: Zofran 4 mg Route: PO; ca1 12:07 Follow up: Response: No adverse reaction; Nausea is decreased ca1 11:44 Drug: fentaNYL (PF) 25 mcg {Note: RASS - 0.} Route: IM; Site: right deltoid; ca1 12:08 Follow up: Response: No adverse reaction; Pain is decreased; RASS: Alert and Calm (0) ca1 12:27 Drug: Valium 2 mg Route: PO; ca1 13:00 Follow up: Response: No adverse reaction; Pain is decreased ca1 12:29 Drug: Rocephin (cefTRIAXone) 1 grams Route: IM; Site: right gluteus; ca1 13:00 Follow up: Response: No adverse reaction ca1 Outcome: 12:24 Discharge ordered by . snw 13:45 Discharged to home ambulatory. ca1 13:45 Condition: stable 13:45 Discharge instructions given to patient, Instructed on discharge instructions, follow up and referral plans. medication usage, Demonstrated understanding of instructions, follow-up care, medications, Prescriptions given X 3. 13:47 Patient left the ED. ca1 Signatures: Dispatcher [employer] EDMS Miley Recio FNP-C FNP-CsnPuja Mullins Maria 5 Mishel Ritchie RN RN jl7 Emilia Fatima, RN RN ca1 Corrections: (The following items were deleted from the chart) 11:24 11: Patient moved back from radiology. ca1 ca1
--- NOTE | 2019-06-19 12:25 | EDPHYS ---
Physician Documentation [facility] Name: Sima Mcgee Age: 39 yrs Sex: Female : 1980 Arrival Date: 06/19/2019 Time: 10:16 Bed 15 Private MD: ED Physician Kevin Kenyon HPI: 06/19 12:27 This 39 yrs old Female presents to ER via Ambulatory with complaints of Back snw Pain. 11:18 The patient presents with pain that is acute. The symptoms are located in the low back, snw L5, right lateral hip. Onset: The symptoms/episode began/occurred suddenly, 3 day(s) ago, and became persistent. The pain does not radiate. Associated signs and symptoms: Pertinent positives: pain with movement. The problem was sustained tripped over the pet in the house and fell down the stairs. Severity of symptoms: At their worst the symptoms were moderate. The patient has not experienced similar symptoms in the past. It is unknown whether or not the patient has recently seen a physician. 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 - Social history:: Smoking status: Patient/guardian denies using tobacco. - Ebola Screening: : No symptoms or risks identified at this time. ROS: 11:21 Constitutional: Negative for fever, chills, and weight loss, Eyes: Negative for injury, snw pain, redness, and discharge, ENT: Negative for injury, pain, and discharge, Neck: Negative for injury, pain, and swelling, Cardiovascular: Negative for chest pain, palpitations, and edema, Respiratory: Negative for shortness of breath, cough, wheezing, and pleuritic chest pain, Abdomen/GI: Negative for abdominal pain, nausea, vomiting, diarrhea, and constipation, Back: Negative for injury and pain, : Negative for injury, bleeding, discharge, and swelling, Skin: Negative for injury, rash, and discoloration, Neuro: Negative for headache, weakness, numbness, tingling, and seizure, Psych: Negative for depression, anxiety, suicide ideation, homicidal ideation, and hallucinations. 11:21 MS/extremity: Positive for injury or acute deformity, pt c/o right hip pain, no LOC. Exam: 11:22 Constitutional: This is a well developed, well nourished patient who is awake, alert, snw and in no acute distress. Head/Face: Normocephalic, atraumatic. Eyes: Pupils equal round and reactive to light, extra-ocular motions intact. Lids and lashes normal. Conjunctiva and sclera are non-icteric and not injected. Cornea within normal limits. Periorbital areas with no swelling, redness, or edema. ENT: Nares patent. No nasal discharge, no septal abnormalities noted. Tympanic membranes are normal and external auditory canals are clear. Oropharynx with no redness, swelling, or masses, exudates, or evidence of obstruction, uvula midline. Mucous membranes moist. Neck: Trachea midline, no thyromegaly or masses palpated, and no cervical lymphadenopathy. Supple, full range of motion without nuchal rigidity, or vertebral point tenderness. No Meningismus. Chest/axilla: Normal chest wall appearance and motion. Nontender with no deformity. No lesions are appreciated. Cardiovascular: Regular rate and rhythm with a normal S1 and S2. No gallops, murmurs, or rubs. Normal PMI, no JVD. No pulse deficits. Respiratory: Lungs have equal breath sounds bilaterally, clear to auscultation and percussion. No rales, rhonchi or wheezes noted. No increased work of breathing, no retractions or nasal flaring. Abdomen/GI: Soft, non-tender, with normal bowel sounds. No distension or tympany. No guarding or rebound. No evidence of tenderness throughout. Back: No spinal tenderness. No costovertebral tenderness. Full range of motion. Skin: Warm, dry with normal turgor. Normal color with no rashes, no lesions, and no evidence of cellulitis. Neuro: Awake and alert, GCS 15, oriented to person, place, time, and situation. Cranial nerves II-XII grossly intact. Motor strength 5/5 in all extremities. Sensory grossly intact. Cerebellar exam normal. Normal gait. 11:22 Neuro: Orientation: is normal, Mentation: is normal, Cranial nerves: grossly normal, Cerebellar function: is grossly normal, Sensation: is normal, seizure activity, is not displayed by the patient. Vital Signs: 10:21 BP 145 / 94; Pulse 99; Resp 17 S; Temp 98.5(O); Pulse Ox 100% on R/A; Weight 52.16 kg jl7 (R); Height 5 ft. 0 in. (152.40 cm) (R); Pain 9/10; 11:55 BP 133 / 88; Pulse 89; Resp 17; Pulse Ox 100% on R/A; mh5 13:21 BP 129 / 82; Pulse 97; Resp 16 S; Pulse Ox 100% on R/A; ca1 10:21 Body Mass Index 22.46 (52.16 kg, 152.40 cm) jl7 MDM: 10:44 Patient medically screened. [facility] 12:22 Data reviewed: vital signs, nurses notes. Data interpreted: Pulse oximetry: on room air snw is 100 %. Interpretation: normal. Counseling: I had a detailed discussion with the patient and/or guardian regarding: the historical points, exam findings, and any diagnostic results supporting the discharge/admit diagnosis, the presence of at least one elevated blood pressure reading (>120/80) during this emergency department visit, lab results, radiology results, the need for outpatient follow up, to return to the emergency department if symptoms worsen or persist or if there are any questions or concerns that arise at home. Special discussion: Based on the patient's history, exam and DX evaluation, there is no indication for emergent intervention or inpatient TX. It is understood by the patient/guardian that if the SXs persist or worsen they need to return immediately for re-evaluation. 12:27 Special discussion: I have referred the patient to see his PCP for further evaluation snw of high blood pressure. Based on the history and exam findings, there is no indication for further emergent testing or inpatient evaluation. I discussed with the patient/guardian the need to see the orthopedic surgeon for further evaluation of the symptoms. I discussed with the patient/guardian the need to see the primary care provider for further evaluation of the symptoms. 06/19 11:05 Order name: Urine Dipstick--Ancillary (enter results); Complete Time: 11:11 em1 06/19 11:05 Order name: Urine --Ancillary (enter results); Complete Time: 11:11 em1 06/19 11:00 Order name: XRAY Hip RIGHT 2 view; Complete Time: 12:19 snw 06/19 11:16 Order name: Lumbar Spine (3 Views) XRAY; Complete Time: 11:42 snw 06/19 11:05 Order name: Urine Dipstick-Ancillary (obtain specimen); Complete Time: 11:04 em1 06/19 11:05 Order name: Urine Test (obtain specimen); Complete Time: 11:04 em1 Administered Medications: 11:40 Drug: Zofran 4 mg Route: PO; ca1 12:07 Follow up: Response: No adverse reaction; Nausea is decreased ca1 11:44 Drug: fentaNYL (PF) 25 mcg {Note: RASS - 0.} Route: IM; Site: right deltoid; ca1 12:08 Follow up: Response: No adverse reaction; Pain is decreased; RASS: Alert and Calm (0) ca1 12:27 Drug: Valium 2 mg Route: PO; ca1 13:00 Follow up: Response: No adverse reaction; Pain is decreased ca1 12:29 Drug: Rocephin (cefTRIAXone) 1 grams Route: IM; Site: right gluteus; ca1 13:00 Follow up: Response: No adverse reaction ca1 Disposition: 15:15 Co-signature as Attending Physician, Kevin Kenyon MD I agree with the assessment and piotr plan of care. Disposition: 06/19/19 12:24 Discharged to Home. Impression: Fall (on) (from) unspecified stairs and steps, Pain in right hip, Urinary tract infection, site not specified. - Condition is Stable. - Discharge Instructions: Back Pain, Adult, Fall Prevention in the Home, Hip Pain, Rehydration, Adult. - Prescriptions for Augmentin 875- 125 mg Oral Tablet - take 1 tablet by ORAL route every 12 hours for 10 days; 20 tablet. orphenadrine citrate 100 mg Oral Tablet Sustained Release - take 1 tablet by ORAL route 2 times per day As needed; 20 tablet. Mobic 7.5 mg Oral Tablet - take 1 tablet by ORAL route 1-2 times daily take with food; 20 tablet. - Work release form, Medication Reconciliation Form, Thank You Letter, Antibiotic Education, Prescription Opioid Use form. - Follow up: Private Physician; When: 2 - 3 days; Reason: Recheck today's complaints, Continuance of care, Re-evaluation by your physician. Follow up: Emergency Department; When: As needed; Reason: Worsening of condition. Signatures: Dispatcher [employer] Kevin Nunez MD MD cha Therrien, Shelly, [employer]-C C[employer]-Csnw Yaw Upton em1 Mishel Ritchie, RN RN jl7 Emilia Fatima RN RN ca1 Corrections: (The following items were deleted from the chart) 13:47 12:24 06/19/2019 12:24 Discharged to Home. Impression: Fall (on) (from) unspecified ca1 stairs and steps; Pain in right hip; Urinary tract infection, site not specified. Condition is Stable. Forms are Medication Reconciliation Form, Thank You Letter, Antibiotic Education, Prescription Opioid Use. Follow up: Private Physician; When: 2 - 3 days; Reason: Recheck today's complaints, Continuance of care, Re-evaluation by your physician. Follow up: Emergency Department; When: As needed; Reason: Worsening of condition. snw
[2019-06-19 13:53] VITALS: TEMP 98.5; O2SAT 100
[2019-06-19 13:56] VITALS: BP 129/82
== END 2019-06-19 13:47 | disposition home or self-care (01) ==
LOC: ER 10:14
DX: N39.0 Urinary tract infection, site not specified (principal); M25.551 Pain in right hip; W10.9XXA Fall (on) (from) unspecified stairs and steps, initial encounter; Y93.9 Activity, unspecified; Y92.9 Unspecified place or not applicable
CPT/HCPCS: 81025; 81003; 72100; 73502; 96372; 99284; J3010; J2001; J2405